=== PATIENT | female | born 1970 | race Caucasian/White ===

== ENCOUNTER 2016-07-08 10:54 | Emergency (ER) | payer OTHER, BC ==
[~2016-07-08 10:54] MED LIST: AUGM500T34 PO
[2016-07-08] MEDS ORDERED: FLUORESCEIN OPHTH 1 MG STRIP As Ordered ONE (13:20)
--- NOTE | 2016-07-08 14:55 | EDDOCDS ---
Physician Documentation [facility] Name: Yanni Beltran Age: 45 yrs Sex: Female : 1970 Arrival Date: 07/08/2016 Time: 10:54 Bed PD Private MD: Everette Disposition: 07/08/16 14:30 Discharged to Home/Self Care. Impression: Unspecified injury of right eye and orbit - LASER POINTED IN RIGHT EYE, BLURRED VISION. - Condition is Stable. - Discharge Instructions: Eye - Blurred Vision. - Medication Reconciliation, Local Pharmacy Hours, Work Release Form - 2 day form. - Follow up: Emergency Department; When: As needed; Reason: Worsening of conditions. Follow up: Your own Physician; When: [facility]; Reason: Wound/Symptom Recheck, Further diagnostic work-up, Recheck today's complaints, Continuance of care, To establish care. - Problem is new. - Symptoms are unchanged. - Notes: PLEASE FOLLOW UP WITH THE [facility] TOMORROW MORNING AT 0915. THIS IS THE [facility] LOCATION. Historical: - Allergies: SULFA (SULFONAMIDES) (Rash); Compazineagitation; - Home Meds: 1. levothyroxine 50 mcg Oral cap 1 cap once daily 2. multivitamin Oral tab 1 tablet daily 3. ibuprofen 600 mg Oral tab 1 tab every 6 hours as needed - PMHx: Hyperthyroidism; - PSHx: Appendectomy; right knee; lasek both eyes; Ablation, Cardiac; ; vein stripping; - Social history: Smoking status: Patient states was never smoker of tobacco. No barriers to communication noted, The patient speaks fluent Andorran. - Family history: Not pertinent. - : The pt / caregiver states he / she is not on anticoagulants. Home medication list is obtained from the patient. - Exposure Risk Screening:: None identified. 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 0 in. (182.88 cm); Pain 2/10; 14:41 BP 138 / 78 RA Sitting (auto/reg); Pulse 83; Resp 16; Temp 97.8(O); Pulse Ox 98% on jrd R/A; Pain 2/10; 10:55 Body Mass Index 23.06 (77.11 kg, 182.88 cm) cmb Visual Acuity: 13:27 Left Eye Visual acuity 20/20, ; Right Eye Visual acuity 20/50, ; Both Eyes Visual rs3 acuity 20/25; Without Lenses; MDM: 13:18 Fluorescein Strip 1 strips Ophthalmic in right eye once ordered. dt4 13:20 Visual Acuity ordered. dt4 13:47 Financial registration complete. lg 14:13 [facility] Payment Agreement was scanned into [employer] and attached to record. lg Administered Medications: 14:20 Drug: Fluorescein 1 strips [fluorescein 1 mg eye strips (1 strips)] {Note: administered rs3 by provider.} Route: Ophthalmic; Site: right eye; Signatures: Suyapa Perry RN RN kcs Marciano Garsia, Reg Reg lg Louisa Corado RN RN rs3 Ondina Arteaga PA-C PA-C dt4 The chart was reviewed and I authenticate all verbal orders and agree with the evaluation and treatment provided.Attachments: 14:13 [facility] Payment Agreement lg MTDD
--- NOTE | 2016-07-08 14:55 | EDDOCDS ---
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 Saw a MANAGER RESEARCH DEVELOPMENT at the clinic there and he sent her here for eval. Adult Sepsis Screening: The patient does not have new or worsening altered mentation. Patient's respiratory rate is less than 22. Systolic blood pressure is greater than 100. Patient has a qSOFA score of 0- Negative Sepsis Screen. Suicide/Homicide risk assessment- the patient denies having any suicidal and/or homicidal ideations and does not present with any other emotional, behavioral or mental health complaints. Status: Patient is not a service center specialist or dependent. Transition of care: patient was not received from another setting of care. 11:09 Acuity: NAHOMI Level 4 kcs 11:09 Method Of Arrival: Walkin/Carried/Asstd kcs Triage Assessment: 11:14 General: Appears comfortable, well developed, well nourished, well groomed, Behavior is kcs cooperative, pleasant. Pain: Location: right eye Pain currently is 2 out of 10 on a pain scale. Pt Declines HIV testing. Neurological: Level of Consciousness is awake, alert. Respiratory: Airway is patent Respiratory effort is even, unlabored, Respiratory pattern is regular, symmetrical. Derm: Skin is intact, is healthy with good turgor, Skin is dry, Skin is normal. 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 levothyroxine 50 mcg Oral cap 1 cap once daily 2. multivitamin Oral tab 1 tablet daily 3. ibuprofen 600 mg Oral tab 1 tab every 6 hours as needed - PMHx: Hyperthyroidism; - PSHx: Appendectomy; right knee; lasek both eyes; Ablation, Cardiac; ; vein stripping; - Social history: Smoking status: Patient states was never smoker of tobacco. No barriers to communication noted, The patient speaks fluent Vietnamese. - Family history: Not pertinent. - : The pt / caregiver states he / she is not on anticoagulants. Home medication list is obtained from the patient. - Exposure Risk Screening:: None identified. Screenin:52 Screening information is obtained from the patient. Fall risk: No risks identified. rs3 Assistance ADL's: requires no assistance with activities of daily living. Abuse/DV Screen: The patient / caregiver reports he/she is: not in a situation that causes fear, pain or injury. Nutritional screening: No deficits noted. Advance Directives: Currently, there is no health care proxy. home support is adequate. Assessment: 14:51 General: Appears in no apparent distress, Behavior is appropriate for age, cooperative. rs3 Pain: Denies pain. EENT: Reports blurred vision in outer aspect of conjuctiva of right eye, iris of right eye and inner aspect of conjuctiva of right eye. Respiratory: Airway is patent Respiratory effort is even, unlabored. Derm: Skin is pink, warm & dry. Vital Signs: 10:55 BP 139 / 91; Pulse 83; Resp 16; Temp 98.2(O); Pulse Ox 98% ; Weight 77.11 kg; Height 6 cmb ft. 0 in. (182.88 cm); Pain 2/10; 14:41 BP 138 / 78 RA Sitting (auto/reg); Pulse 83; Resp 16; Temp 97.8(O); Pulse Ox 98% on jrd R/A; Pain 2/10; 10:55 Body Mass Index 23.06 (77.11 kg, 182.88 cm) cmb Vitals: 10:55 Log In Time: July 08, 2016 at 10:40. cmb Visual Acuity: 13:27 Left Eye Visual acuity 20/20, ; Right Eye Visual acuity 20/50, ; Both Eyes Visual rs3 acuity 20/25; Without Lenses; ED Course: 10:55 Patient visited by Eloisa Obrien. cmb 10:55 Everette is Private Physician. cmb 10:55 Patient moved to Waiting cmb 10:56 Patient moved to Pre RCE cmb 11:12 Triage Initiated kcs 12:19 Patient moved to Triage 1 jrd 12:54 Patient visited by Mabel Menchaca RN. mk4 12:55 Ondina Arteaga PA-C is [facility]. dt4 12:55 Gen Higuera MD is Attending Physician. dt4 12:55 Patient visited by Ondina Arteaga PA-C. dt4 13:19 Patient moved to I10 / 23 rs3 13:20 Patient moved to PD2 / 27 dt4 13:46 Patient visited by Suyapa Perry RN. kcs 14:13 [facility] Payment Agreement was scanned into [employer] and attached to record. lg 14:19 Patient visited by Mabel Menchaca RN. mk4 14:27 Your own Physician is Referral Physician. dt4 14:44 Patient visited by Akin Gaines PCA. jrd 14:53 No IV's were initiated during this patient's visit. No procedures done that require rs3 assistance. 14:54 The patient / caregiver is instructed regarding the plan of care and ED course. rs3 Administered Medications: 14:20 Drug: Fluorescein 1 strips [fluorescein 1 mg eye strips (1 strips)] {Note: administered rs3 by provider.} Route: Ophthalmic; Site: right eye; Order Results: There are currently no results for this order. Outcome: 14:30 Discharge ordered by Provider. dt4 14:53 Discharge Assessment: patient administered narcotics - no. The following High Risk rs3 Discharge criteria are identified: None. Discharged to home with family. Condition: stable. Discharge instructions given to patient, Instructed on discharge instructions, follow up and referral plans. medication usage, Demonstrated understanding of instructions, medications, Pt was receptive of discharge instructions/ teaching. No special radiology studies were completed. Property :Personal belongings accompany Pt. 14:54 Patient left the ED. rs3 Signatures: Suyapa Perry RN RN kcs Ganter, LoriLee, Reg Reg lg Soosairaj, Rosemary, RN RN rs3 Eloisa Obrien cmb Mabel Menchaca RN RN Ondina Roland PA-C PA-C dt4 Akin Gaines PCA PCA jrd MTDD
--- NOTE | 2016-07-10 15:55 | EDDOCDS ---
Physician Documentation [facility] Name: Yanni Beltran Age: 45 yrs Sex: Female : 1970 Arrival Date: 07/08/2016 Time: 10:54 Bed PD Private MD: Everette Disposition: 07/08/16 14:30 Discharged to Home/Self Care. Impression: Unspecified injury of right eye and orbit - LASER POINTED IN RIGHT EYE, BLURRED VISION. - Condition is Stable. - Discharge Instructions: Eye - Blurred Vision. - Medication Reconciliation, Local Pharmacy Hours, Work Release Form - 2 day form. - Follow up: Emergency Department; When: As needed; Reason: Worsening of conditions. Follow up: Your own Physician; When: [facility]; Reason: Wound/Symptom Recheck, Further diagnostic work-up, Recheck today's complaints, Continuance of care, To establish care. - Problem is new. - Symptoms are unchanged. - Notes: PLEASE FOLLOW UP WITH THE [facility] TOMORROW MORNING AT 0915. THIS IS THE [facility] LOCATION. Historical: - Allergies: SULFA (SULFONAMIDES) (Rash); Compazineagitation; - Home Meds: 1. levothyroxine 50 mcg Oral cap 1 cap once daily 2. multivitamin Oral tab 1 tablet daily 3. ibuprofen 600 mg Oral tab 1 tab every 6 hours as needed - PMHx: Hyperthyroidism; - PSHx: Appendectomy; right knee; lasek both eyes; Ablation, Cardiac; ; vein stripping; - Social history: Smoking status: Patient states was never smoker of tobacco. No barriers to communication noted, The patient speaks fluent Lao. - Family history: Not pertinent. - : The pt / caregiver states he / she is not on anticoagulants. Home medication list is obtained from the patient. - Exposure Risk Screening:: None identified. 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 0 in. (182.88 cm); Pain 2/10; 14:41 BP 138 / 78 RA Sitting (auto/reg); Pulse 83; Resp 16; Temp 97.8(O); Pulse Ox 98% on jrd R/A; Pain 2/10; 10:55 Body Mass Index 23.06 (77.11 kg, 182.88 cm) cmb Visual Acuity: 13:27 Left Eye Visual acuity 20/20, ; Right Eye Visual acuity 20/50, ; Both Eyes Visual rs3 acuity 20/25; Without Lenses; MDM: 13:18 Fluorescein Strip 1 strips Ophthalmic in right eye once ordered. dt4 13:20 Visual Acuity ordered. dt4 13:47 Financial registration complete. lg 14: [facility] Payment Agreement was scanned into [employer] and attached to record. lg 07/09 12:21 T-Sheet-- Draft Copy was scanned into [employer] and attached to record. gb Administered Medications: 07/08 14:20 Drug: Fluorescein 1 strips [fluorescein 1 mg eye strips (1 strips)] {Note: administered rs3 by provider.} Route: Ophthalmic; Site: right eye; Signatures: Suyapa Perry RN RN kcs Negin Sales, Reg Reg gb Marciano Garsia, Reg Reg lg Louisa Corado RN RN rs3 Ondina Arteaga PA-C PA-C dt4 The chart was reviewed and I authenticate all verbal orders and agree with the evaluation and treatment provided.Attachments: 14: [facility] Payment Agreement 07/09 12:21 T-Sheet-- Draft Copy gb Chart Complete MTDD
--- NOTE | 2016-07-10 15:55 | EDDOCDS ---
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 Saw a SOFT SUGAR SUPERVISOR at the clinic there and he sent her here for eval. Adult Sepsis Screening: The patient does not have new or worsening altered mentation. Patient's respiratory rate is less than 22. Systolic blood pressure is greater than 100. Patient has a qSOFA score of 0- Negative Sepsis Screen. Suicide/Homicide risk assessment- the patient denies having any suicidal and/or homicidal ideations and does not present with any other emotional, behavioral or mental health complaints. 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 Transition of care: patient was not received from another setting of care. 11:09 Acuity: NAHOMI Level 4 kcs 11:09 Method Of Arrival: Walkin/Carried/Asstd kcs Triage Assessment: 11:14 General: Appears comfortable, well developed, well nourished, well groomed, Behavior is kcs cooperative, pleasant. Pain: Location: right eye Pain currently is 2 out of 10 on a pain scale. Pt Declines HIV testing. Neurological: Level of Consciousness is awake, alert. Respiratory: Airway is patent Respiratory effort is even, unlabored, Respiratory pattern is regular, symmetrical. Derm: Skin is intact, is healthy with good turgor, Skin is dry, Skin is normal. 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 levothyroxine 50 mcg Oral cap 1 cap once daily 2. multivitamin Oral tab 1 tablet daily 3. ibuprofen 600 mg Oral tab 1 tab every 6 hours as needed - PMHx: Hyperthyroidism; - PSHx: Appendectomy; right knee; lasek both eyes; Ablation, Cardiac; ; vein stripping; - Social history: Smoking status: Patient states was never smoker of tobacco. No barriers to communication noted, The patient speaks fluent Swedish. - Family history: Not pertinent. - : The pt / caregiver states he / she is not on anticoagulants. Home medication list is obtained from the patient. - Exposure Risk Screening:: None identified. Screenin:52 Screening information is obtained from the patient. Fall risk: No risks identified. rs3 Assistance ADL's: requires no assistance with activities of daily living. Abuse/DV Screen: The patient / caregiver reports he/she is: not in a situation that causes fear, pain or injury. Nutritional screening: No deficits noted. Advance Directives: Currently, there is no health care proxy. home support is adequate. Assessment: 14:51 General: Appears in no apparent distress, Behavior is appropriate for age, cooperative. rs3 Pain: Denies pain. EENT: Reports blurred vision in outer aspect of conjuctiva of right eye, iris of right eye and inner aspect of conjuctiva of right eye. Respiratory: Airway is patent Respiratory effort is even, unlabored. Derm: Skin is pink, warm & dry. Vital Signs: 10:55 BP 139 / 91; Pulse 83; Resp 16; Temp 98.2(O); Pulse Ox 98% ; Weight 77.11 kg; Height 6 cmb ft. 0 in. (182.88 cm); Pain 2/10; 14:41 BP 138 / 78 RA Sitting (auto/reg); Pulse 83; Resp 16; Temp 97.8(O); Pulse Ox 98% on jrd R/A; Pain 2/10; 10:55 Body Mass Index 23.06 (77.11 kg, 182.88 cm) cmb Vitals: 10:55 Log In Time: July 08, 2016 at 10:40. cmb Visual Acuity: 13:27 Left Eye Visual acuity 20/20, ; Right Eye Visual acuity 20/50, ; Both Eyes Visual rs3 acuity 20/25; Without Lenses; ED Course: 10:55 Patient visited by Eloisa Obrien. cmb 10:55 Everette is Private Physician. cmb 10:55 Patient moved to Waiting cmb 10:56 Patient moved to Pre RCE cmb 11:12 Triage Initiated kcs 12:19 Patient moved to Triage 1 jrd 12:54 Patient visited by Mabel Menchaca RN. mk4 12:55 Ondina Arteaga PA-C is PHCP. dt4 12:55 Gen Higuera MD is Attending Physician. dt4 12:55 Patient visited by Ondina Arteaga PA-C. dt4 13:19 Patient moved to I10 / 23 rs3 13:20 Patient moved to PD2 / 27 dt4 13:46 Patient visited by Suyapa Perry RN. kcs 14:13 [facility] Payment Agreement was scanned into [employer] and attached to record. lg 14:19 Patient visited by Mabel Menchaca RN. mk4 14:27 Your own Physician is Referral Physician. dt4 14:44 Patient visited by Akin Gaines PCA. jrd 14:53 No IV's were initiated during this patient's visit. No procedures done that require rs3 assistance. 14:54 The patient / caregiver is instructed regarding the plan of care and ED course. rs3 07/09 12:21 T-Sheet-- Draft Copy was scanned into [employer] and attached to record. gb Administered Medications: 07/08 14:20 Drug: Fluorescein 1 strips [fluorescein 1 mg eye strips (1 strips)] {Note: administered rs3 by provider.} Route: Ophthalmic; Site: right eye; Order Results: There are currently no results for this order. Outcome: 14:30 Discharge ordered by Provider. dt4 14:53 Discharge Assessment: patient administered narcotics - no. The following High Risk rs3 Discharge criteria are identified: None. Discharged to home with family. Condition: stable. Discharge instructions given to patient, Instructed on discharge instructions, follow up and referral plans. medication usage, Demonstrated understanding of instructions, medications, Pt was receptive of discharge instructions/ teaching. No special radiology studies were completed. Property :Personal belongings accompany Pt. 14:54 Patient left the ED. rs3 Signatures: Suyapa Perry RN RN kcs Barnhardt, Gloria, Reg Reg gb Marciano Garsia, Reg Reg lg Louisa Corado RN RN rs3 Eloisa Obrien cmb Mabel Menchaca RN RN mk4 Tschudi, Diane, PA-C PA-C dt4 Akin Gaines, CLOTH PICKER CLOTH PICKER jrd Chart Complete MTDD
--- NOTE | 2016-07-10 15:55 | EDDOCDS ---
Physician Documentation [facility] Name: Yanni Beltran Age: 45 yrs Sex: Female : 1970 Arrival Date: 07/08/2016 Time: 10:54 Bed PD Private MD: Everette Disposition: 07/08/16 14:30 Discharged to Home/Self Care. Impression: Unspecified injury of right eye and orbit - LASER POINTED IN RIGHT EYE, BLURRED VISION. - Condition is Stable. - Discharge Instructions: Eye - Blurred Vision. - Medication Reconciliation, Local Pharmacy Hours, Work Release Form - 2 day form. - Follow up: Emergency Department; When: As needed; Reason: Worsening of conditions. Follow up: Your own Physician; When: [facility]; Reason: Wound/Symptom Recheck, Further diagnostic work-up, Recheck today's complaints, Continuance of care, To establish care. - Problem is new. - Symptoms are unchanged. - Notes: PLEASE FOLLOW UP WITH THE [facility] TOMORROW MORNING AT 0915. THIS IS THE [facility] LOCATION. Historical: - Allergies: SULFA (SULFONAMIDES) (Rash); Compazineagitation; - Home Meds: 1. levothyroxine 50 mcg Oral cap 1 cap once daily 2. multivitamin Oral tab 1 tablet daily 3. ibuprofen 600 mg Oral tab 1 tab every 6 hours as needed - PMHx: Hyperthyroidism; - PSHx: Appendectomy; right knee; lasek both eyes; Ablation, Cardiac; ; vein stripping; - Social history: Smoking status: Patient states was never smoker of tobacco. No barriers to communication noted, The patient speaks fluent Ethiopian. - Family history: Not pertinent. - : The pt / caregiver states he / she is not on anticoagulants. Home medication list is obtained from the patient. - Exposure Risk Screening:: None identified. 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 0 in. (182.88 cm); Pain 2/10; 14:41 BP 138 / 78 RA Sitting (auto/reg); Pulse 83; Resp 16; Temp 97.8(O); Pulse Ox 98% on jrd R/A; Pain 2/10; 10:55 Body Mass Index 23.06 (77.11 kg, 182.88 cm) cmb Visual Acuity: 13:27 Left Eye Visual acuity 20/20, ; Right Eye Visual acuity 20/50, ; Both Eyes Visual rs3 acuity 20/25; Without Lenses; MDM: 13:18 Fluorescein Strip 1 strips Ophthalmic in right eye once ordered. dt4 13:20 Visual Acuity ordered. dt4 13:47 Financial registration complete. lg 14: [facility] Payment Agreement was scanned into [employer] and attached to record. lg 07/09 12:21 T-Sheet-- Draft Copy was scanned into [employer] and attached to record. gb Administered Medications: 07/08 14:20 Drug: Fluorescein 1 strips [fluorescein 1 mg eye strips (1 strips)] {Note: administered rs3 by provider.} Route: Ophthalmic; Site: right eye; Signatures: Suyapa Perry RN RN kcs Negin Sales, Reg Reg gb Marciano Garsia, Reg Reg lg Louisa Corado RN RN rs3 Ondina Arteaga PA-C PA-C dt4 The chart was reviewed and I authenticate all verbal orders and agree with the evaluation and treatment provided.Attachments: 14: [facility] Payment Agreement 07/09 12:21 T-Sheet-- Draft Copy gb Chart Complete MTDD
== END 2016-07-08 14:54 | disposition home or self-care (01) ==
LOC: M ED 10:54
DX: H53.8 Other visual disturbances (principal); E05.90 Thyrotoxicosis, unspecified without thyrotoxic crisis or storm; Z79.899 Other long term (current) drug therapy; Z88.2 Allergy status to sulfonamides; Z88.8 Allergy status to other drugs, medicaments and biological substances

== ENCOUNTER → 2016-08-04 | Outpatient (CLI) | payer OTHER, BC ==
[2016-08-04 17:54] LABS: THYROID PEROXIDASE ANTIBODY < 28.0 U/ML (<60.0)
== END ==
LOC: M LRY 11:53
PROVIDERS: ATTEND Family Medicine
DX: E03.8 Other specified hypothyroidism (principal); N64.52 Nipple discharge

== ENCOUNTER → 2016-08-20 | Outpatient (CLI) | payer BC, OTHER | LOC: M SLEEP HO 12:46 | PROVIDERS: ATTEND Physician Assistant | DX: R53.83 Other fatigue (principal) ==

== ENCOUNTER → 2016-10-13 | Outpatient (REF) | payer BC | LOC: M LAB REF 13:20 | PROVIDERS: ATTEND Specialist | DX: Z12.4 Encounter for screening for malignant neoplasm of cervix (principal) ==

== ENCOUNTER → 2016-11-03 | Outpatient (CLI) | payer BC ==
[2016-11-03 14:08] LABS: FREE T4 1.13 NG/DL (0.76-1.46)
== END ==
LOC: M SMT 08:22
PROVIDERS: ATTEND Physician Assistant
DX: E03.8 Other specified hypothyroidism (principal)

== ENCOUNTER → 2017-03-03 | Outpatient (CLI) | payer BC ==
--- NOTE | 2017-03-03 15:31 | REP ---
Clinical: Trauma. Technique: AP, lateral, bilateral oblique views left wrist . Findings: The carpal bones, surrounding osseous structures, soft tissues, and joint spaces are normal. There is no evidence for acute fracture or dislocation. No subcutaneous emphysema or radiodense foreign body. Impression: Normal left wrist series. No acute fracture or dislocation Signed by Kaleb Graham MD 03/03/2017 03:23 P
== END ==
LOC: M LRY 14:22
PROVIDERS: ATTEND Nurse Practitioner Family
DX: S69.92XA Unspecified injury of left wrist, hand and finger(s), initial encounter (principal); W18.30XA Fall on same level, unspecified, initial encounter; Y92.009 Unspecified place in unspecified non-institutional (private) residence as the place of occurrence of the external cause

== ENCOUNTER → 2017-03-10 | Outpatient (CLI) | payer BC ==
[2017-03-10 13:57] LABS: BASO % 0.8 % (0.0-1.0); EOS # 0.2 K/mm3 (0.0-0.50); EOS % 3.9 % (0.0-3.0); LARGE UNSTAINED CELL # 0.1 K/mm3 (0.0-0.4); LARGE UNSTAINED CELL % 1.9 % (0.0-4.0); LYMPH # 1.6 K/mm3 (1.5-4.5); LYMPH % 29.3 % (24.0-44.0); MEAN CORPUSCULAR HGB CONC 34.2 g/dl (32.0-36.5); MEAN CORPUSCULAR VOLUME 90.6 fl (80.0-96.0); MONO # 0.3 K/mm3 (0.0-0.8); MONO % 4.7 % (0.0-5.0); NEUTROPHILS # 3.3 K/mm3 (1.8-7.7); NEUTROPHILS % 59.3 % (36.0-66.0); PLATELET COUNT, AUTOMATED 189 k/mm3 (150-450); RED CELL DISTRIBUTION WIDTH 12.1 % (11.5-14.5); WHITE BLOOD COUNT 5.5 K/mm3 (4.0-10.0)
[2017-03-10 14:05] LABS: ALBUMIN/GLOBULIN RATIO 1.43 (1.00-1.93); ALKALINE PHOSPHATASE 38 U/L (45-117); ALT/SGPT 24 U/L (12-78); ANION GAP 8 MEQ/L (8-16); AST/SGOT 14 U/L (15-37); BILIRUBIN,TOTAL 1.1 MG/DL (0.2-1.0); BLOOD UREA NITROGEN 15 MG/DL (7-18); CALCIUM LEVEL 8.4 MG/DL (8.5-10.1); CARBON DIOXIDE LEVEL 27 MEQ/L (21-32); CHLORIDE LEVEL 107 MEQ/L (98-107); CHOLESTEROL LEVEL 176 MG/DL (<200); CREATININE FOR GFR 0.76 MG/DL (0.55-1.02); FREE T4 1.11 NG/DL (0.76-1.46); GLOMERULAR FILTRATION RATE > 60.0 (>58); GLUCOSE, FASTING 80 MG/DL (70-105); POTASSIUM SERUM 4.6 MEQ/L (3.5-5.1); SODIUM LEVEL 142 MEQ/L (136-145); TOTAL PROTEIN 6.8 GM/DL (6.4-8.2); TRIGLYCERIDES LEVEL 58 MG/DL (<150)
== END ==
LOC: M SMT 08:56
PROVIDERS: ATTEND Family Medicine
DX: E03.8 Other specified hypothyroidism (principal); Z13.29 Encounter for screening for other suspected endocrine disorder; Z13.0 Encounter for screening for diseases of the blood and blood-forming organs and certain disorders involving the immune mechanism

== ENCOUNTER → 2017-09-01 | Outpatient (CLI) | payer BC ==
[2017-09-01 14:38] LABS: TOTAL 25(OH) VITAMIN D 23.5 NG/ML (30.0-100.0)
[2017-09-01 14:55] LABS: FREE T4 1.04 NG/DL (0.76-1.46)
== END ==
LOC: M SMT 11:15
DX: E03.8 Other specified hypothyroidism (principal)
CPT/HCPCS: 84443

== ENCOUNTER → 2018-03-17 | Outpatient (CLI) | payer BC ==
[2018-03-17 11:32] LABS: BASO # 0.1 10^3/uL (0.0-0.2); BASO % 0.9 % (0.0-1.0); EOS # 0.2 10^3/uL (0.0-0.50); EOS % 4.1 % (0.0-3.0); HEMATOCRIT 36.3 % (36.0-47.0); HEMOGLOBIN 12.2 g/dl (12.0-15.5); IMMATURE GRANULOCYTE % 0.2 % (0-3.0); LYMPH # 1.7 10^3/uL (1.5-4.5); LYMPH % 32.3 % (24.0-44.0); MEAN CORPUSCULAR HGB CONC 33.6 g/dl (32.0-36.5); MEAN CORPUSCULAR VOLUME 92.1 fl (80.0-96.0); MONO # 0.3 10^3/uL (0.0-0.8); MONO % 5.6 % (0.0-5.0); NEUTROPHILS # 3.1 10^3/uL (1.8-7.7); NEUTROPHILS % 56.9 % (36.0-66.0); PLATELET COUNT, AUTOMATED 185 10^3/uL (150-450); RED BLOOD COUNT 3.94 10^6/uL (4.00-5.40); RED CELL DISTRIBUTION WIDTH 12.7 % (11.5-14.5); WHITE BLOOD COUNT 5.4 10^3/uL (4.0-10.0)
[2018-03-17 12:02] LABS: ALBUMIN 3.8 GM/DL (3.2-5.2); ALBUMIN/GLOBULIN RATIO 1.23 (1.00-1.93); ALKALINE PHOSPHATASE 43 U/L (45-117); ALT/SGPT 19 U/L (12-78); ANION GAP 8 MEQ/L (8-16); AST/SGOT 18 U/L (7-37); BILIRUBIN,TOTAL 0.9 MG/DL (0.2-1.0); BLOOD UREA NITROGEN 14 MG/DL (7-18); CALCIUM LEVEL 8.4 MG/DL (8.5-10.1); CARBON DIOXIDE LEVEL 28 MEQ/L (21-32); CHLORIDE LEVEL 104 MEQ/L (98-107); CHOLESTEROL LEVEL 180 MG/DL (<200); CREATININE FOR GFR 0.84 MG/DL (0.55-1.30); FREE T4 0.91 NG/DL (0.76-1.46); GLOMERULAR FILTRATION RATE > 60.0 (>58); GLUCOSE, FASTING 82 MG/DL (70-100); HDL CHOLESTEROL 72 MG/DL (>40); LDL CHOLESTEROL 95 MG/DL (<100); NON-HDL-C 108 MG/DL; POTASSIUM SERUM 4.2 MEQ/L (3.5-5.1); SODIUM LEVEL 140 MEQ/L (136-145); TOTAL PROTEIN 6.9 GM/DL (6.4-8.2); TRIGLYCERIDES LEVEL 67 MG/DL (<150)
[2018-03-19 00:20] LABS: Lyme Disease IgG/IgM Antibodie <0.91 ISR (0.00-0.90); Lyme Disease IgM Ab Quantitati <0.80 index (0.00-0.79)
== END ==
LOC: M LRY 08:45
DX: E03.8 Other specified hypothyroidism (principal); Z13.29 Encounter for screening for other suspected endocrine disorder; G31.84 Mild cognitive impairment of uncertain or unknown etiology; M25.50 Pain in unspecified joint
CPT/HCPCS: 84443

== ENCOUNTER → 2018-09-06 | Outpatient (REF) | payer BC ==
[~2018-09-06] MED LIST changes: +IBUP-1022 PO; +LEXA1TAB PO; +MULT1TAB10 PO; +OXYC1TAB23 PO; +SYNT50TA PO; +VITA100067 PO
[2018-09-06 20:24] LABS: FREE T4 0.99 NG/DL (0.76-1.46); THYROID STIMULATING HORMONE 2.07 uIU/ML (0.358-3.740)
== END ==
LOC: M LABDRWAD 19:25
PROVIDERS: ATTEND Family Medicine
DX: E55.9 Vitamin D deficiency, unspecified (principal); E03.9 Hypothyroidism, unspecified

== ENCOUNTER → 2019-01-05 | Outpatient (CLI) | payer BC ==
[2019-01-05 17:21] LABS: BASO # 0.1 10^3/uL (0.0-0.2); BASO % 1.3 % (0.0-1.0); EOS # 0.3 10^3/uL (0.0-0.50); EOS % 4.5 % (0.0-3.0); HEMATOCRIT 37.6 % (36.0-47.0); HEMOGLOBIN 12.7 g/dl (12.0-15.5); LYMPH # 1.9 10^3/uL (1.5-4.5); LYMPH % 33.8 % (24.0-44.0); MEAN CORPUSCULAR HEMOGLOBIN 31.6 pg (27.0-33.0); MEAN CORPUSCULAR HGB CONC 33.8 g/dl (32.0-36.5); MEAN CORPUSCULAR VOLUME 93.5 fl (80.0-96.0); MONO # 0.3 10^3/uL (0.0-0.8); MONO % 6.1 % (0.0-5.0); NEUTROPHILS % 54.1 % (36.0-66.0); PLATELET COUNT, AUTOMATED 206 10^3/uL (150-450); RED BLOOD COUNT 4.02 10^6/uL (4.00-5.40); WHITE BLOOD COUNT 5.5 10^3/uL (4.0-10.0)
[2019-01-05 17:26] LABS: ALBUMIN 4.1 GM/DL (3.2-5.2); ALT/SGPT 20 U/L (12-78); AMYLASE 46 U/L (25-115); BILIRUBIN,TOTAL 0.8 MG/DL (0.2-1.0); BLOOD UREA NITROGEN 14 MG/DL (7-18); CALCIUM LEVEL 8.6 MG/DL (8.5-10.1); CARBON DIOXIDE LEVEL 30 MEQ/L (21-32); CHLORIDE LEVEL 106 MEQ/L (98-107); CREATININE FOR GFR 0.86 MG/DL (0.55-1.30); GLOMERULAR FILTRATION RATE > 60.0 (>58); GLUCOSE, FASTING 78 MG/DL (70-100); LIPASE 94 U/L (73-393); POTASSIUM SERUM 4.5 MEQ/L (3.5-5.1); SODIUM LEVEL 139 MEQ/L (136-145); TOTAL PROTEIN 6.8 GM/DL (6.4-8.2)
== END ==
LOC: M SMT 13:45
PROVIDERS: ATTEND Family Medicine
DX: R10.32 Left lower quadrant pain (principal)

== ENCOUNTER → 2019-02-14 | Outpatient (CLI) | payer BC ==
--- NOTE | 2019-02-14 17:12 | REP ---
CT of the pelvis with transabdominal and endovaginal ultrasound assessment of the the: [address] dated 01/11/2019. The the patient had an 2.5 cm nodule in the left rut pelvis and a superior anterior location, abutting the the psoas muscle with peripheral enhancement and central low density. The finding is nonspecific and some diagnostic considerations are high anterior ovary, mesenteric abscess or necrotic lymph node. The the patient has a hysterectomy. The bladder is adequately distended. There is no identifiable ureter. Neither the right or left ovaries could be identified. No mass or cyst is identified, particularly on the left. Impression: The patient has a hysterectomy. Neither the uterus or right or left ovaries could be visualized. There are no masses or cysts identified otherwise. The bladder is adequately distended and otherwise unremarkable. Electronically Signed by Clovis Marques MD 02/14/2019 05:03 P
== END ==
LOC: M LRY 14:01
PROVIDERS: ATTEND Obstetrics & Gynecology
DX: R10.32 Left lower quadrant pain (principal); Z90.79 Acquired absence of other genital organ(s)

== ENCOUNTER 2019-03-13 12:55 | Outpatient (RCR) | payer BC | END 2019-03-26 | LOC: M PT 12:55 | PROVIDERS: ATTEND Obstetrics & Gynecology | DX: N32.81 Overactive bladder (principal); N39.41 Urge incontinence ==

== ENCOUNTER → 2019-04-02 | Outpatient (CLI) | payer BC ==
[2019-04-02 13:12] LABS: BASO # 0.1 10^3/uL (0.0-0.2); BASO % 0.7 % (0.0-1.0); EOS # 0.2 10^3/uL (0.0-0.5); EOS % 2.8 % (0.0-3.0); HEMATOCRIT 37.4 % (36.0-47.0); HEMOGLOBIN 12.3 g/dl (12.0-15.5); LYMPH # 1.9 10^3/uL (1.5-5.0); LYMPH % 27.2 % (24.0-44.0); MEAN CORPUSCULAR HEMOGLOBIN 30.5 pg (27.0-33.0); MEAN CORPUSCULAR HGB CONC 32.9 g/dl (32.0-36.5); MEAN CORPUSCULAR VOLUME 92.8 fl (80.0-96.0); MONO # 0.4 10^3/uL (0.0-0.8); MONO % 6.1 % (0.0-5.0); NEUTROPHILS # 4.3 10^3/uL (1.5-8.5); NEUTROPHILS % 63.1 % (36.0-66.0); PLATELET COUNT, AUTOMATED 209 10^3/uL (150-450); RED BLOOD COUNT 4.03 10^6/uL (4.00-5.40); WHITE BLOOD COUNT 6.8 10^3/uL (4.0-10.0)
[2019-04-02 13:52] LABS: ALBUMIN 3.9 GM/DL (3.2-5.2); ALT/SGPT 18 U/L (12-78); BILIRUBIN,TOTAL 0.7 MG/DL (0.2-1.0); BLOOD UREA NITROGEN 15 MG/DL (7-18); CALCIUM LEVEL 8.7 MG/DL (8.5-10.1); CARBON DIOXIDE LEVEL 29 MEQ/L (21-32); CHLORIDE LEVEL 106 MEQ/L (98-107); CREATININE FOR GFR 0.82 MG/DL (0.55-1.30); FERRITIN 59 NG/ML (8-252); FREE T4 0.95 NG/DL (0.76-1.46); GLOMERULAR FILTRATION RATE > 60.0 (>58); GLUCOSE, FASTING 78 MG/DL (70-100); IRON (FE) 122 UG/DL (50-170); PERCENT SATURATION 35.8 % (13.2-45.0); POTASSIUM SERUM 4.5 MEQ/L (3.5-5.1); SODIUM LEVEL 139 MEQ/L (136-145); TOTAL 25(OH) VITAMIN D 30.6 NG/ML (30.0-100.0); TOTAL IRON BINDING CAPACITY 341 UG/DL (250-450); TOTAL PROTEIN 6.8 GM/DL (6.4-8.2)
[2019-04-04 08:19] LABS: Lyme Disease IgG/IgM Antibodie <0.91 ISR (0.00-0.90); Lyme Disease IgM Ab Quantitati <0.80 index (0.00-0.79); TISSUE TRANSGLUTAMINASE IgA <2 U/mL (0-3); TISSUE TRANSGLUTAMINASE IgG <2 U/mL (0-5); UNITSIGA FOR GLIADIN IGA 3 units (0-19); UNITSIGG FOR GLIADIN IGG 1 units (0-19)
== END ==
LOC: M SMT 11:13
PROVIDERS: ATTEND Family Medicine
DX: R53.83 Other fatigue (principal); K62.5 Hemorrhage of anus and rectum

== ENCOUNTER 2019-04-19 13:07 | Outpatient (RCR) | payer BC | END 2019-04-26 | LOC: M PT 13:07 | PROVIDERS: ATTEND Obstetrics & Gynecology | DX: N32.81 Overactive bladder (principal); N39.41 Urge incontinence ==

== ENCOUNTER 2019-05-08 11:26 | Outpatient (RCR) | payer BC ==
[2019-05-09] MEDS ORDERED: TROS60CA2 PO (14:14)
[2019-05-09] MEDS ORDERED: NAPR-885 PO (14:27)
[2019-05-09] MEDS ORDERED: VITA200028 PO (14:27)
[2019-05-09] MEDS ORDERED: MULTCAP PO (14:27)
[2019-05-10] MEDS ORDERED: CIPR500T3 PO (09:48)
[2019-05-10] MEDS ORDERED: ESTA0.25 PO (09:48)
[2019-05-10] MEDS ORDERED: KETO10TAB PO (12:37)
== END 2019-05-26 ==
LOC: M PT 11:26
PROVIDERS: ATTEND Obstetrics & Gynecology
DX: Z51.89 Encounter for other specified aftercare (principal)

== ENCOUNTER 2019-05-10 09:29 | Emergency (ER) | payer BC ==
[~2019-05-10] VITALS: Ht 182.9 cm; Wt 93.4 kg
[~2019-05-10 09:29] MED LIST changes: +MULTCAP PO; +NAPR-885 PO; +TROS60CA2 PO; +VITA200028 PO
[2019-05-10] MEDS ORDERED: CIPR500T3 PO (09:48)
[2019-05-10] MEDS ORDERED: ESTA0.25 PO (09:48)
[2019-05-10] MEDS ORDERED: NS 1,000 ML IV ONE (10:15)
[2019-05-10] MEDS ORDERED: KETOROLAC 30 MG/ML VIAL (J1885) IV ONE (10:15)
[2019-05-10 10:47] LABS: BASO # 0.1 10^3/uL (0.0-0.2); BASO % 0.9 % (0.0-1.0); EOS # 0.2 10^3/uL (0.0-0.5); EOS % 3.2 % (0.0-3.0); HEMATOCRIT 36.3 % (36.0-47.0); LYMPH # 1.7 10^3/uL (1.5-5.0); LYMPH % 25.7 % (24.0-44.0); MEAN CORPUSCULAR HEMOGLOBIN 30.5 pg (27.0-33.0); MEAN CORPUSCULAR HGB CONC 33.1 g/dl (32.0-36.5); MEAN CORPUSCULAR VOLUME 92.4 fl (80.0-96.0); MONO # 0.3 10^3/uL (0.0-0.8); MONO % 5.1 % (0.0-5.0); NEUTROPHILS # 4.2 10^3/uL (1.5-8.5); NEUTROPHILS % 64.8 % (36.0-66.0); PLATELET COUNT, AUTOMATED 208 10^3/uL (150-450); RED BLOOD COUNT 3.93 10^6/uL (4.00-5.40); WHITE BLOOD COUNT 6.5 10^3/uL (4.0-10.0)
[2019-05-10 11:14] LABS: ALBUMIN 3.7 GM/DL (3.2-5.2); ALT/SGPT 19 U/L (12-78); BILIRUBIN,DIRECT 0.2 MG/DL (0.0-0.2); BILIRUBIN,TOTAL 0.8 MG/DL (0.2-1.0); BLOOD UREA NITROGEN 14 MG/DL (7-18); CALCIUM LEVEL 8.6 MG/DL (8.5-10.1); CARBON DIOXIDE LEVEL 26 MEQ/L (21-32); CHLORIDE LEVEL 107 MEQ/L (98-107); CREATININE FOR GFR 0.87 MG/DL (0.55-1.30); GLOMERULAR FILTRATION RATE > 60.0 (>58); GLUCOSE, FASTING 85 MG/DL (70-100); LIPASE 93 U/L (73-393); POTASSIUM SERUM 4.2 MEQ/L (3.5-5.1); SODIUM LEVEL 140 MEQ/L (136-145); TOTAL PROTEIN 6.9 GM/DL (6.4-8.2)
[2019-05-10] MEDS ORDERED: ISOVUE-370 76% 100ML VIAL (Q9967) As Ordered ONE (11:22)
--- NOTE | 2019-05-10 12:13 | REP ---
CT abdomen and pelvis with IV but without oral contrast: History: Left lower quadrant pain. CT contrast dose: 100 mL of intravenous Isovue 370. Comparison CT study December 01, 2012. CT findings: Digital preliminary professional sports scout radiograph demonstrates moderate stool in the colon. Bowel gas pattern is otherwise unremarkable. The lung bases are clear on axial CT images. There is no evidence of pleural effusion or upper abdominal ascites. There is a small cyst in the left lobe of the liver, 1.5 cm in greatest diameter, unchanged from the [address] study. No other focal liver lesion is appreciated. The spleen is unremarkable. No adrenal lesion is observed. The kidneys enhance symmetrically and are morphologically intact. No pancreatic abnormality is observed. No abnormalities seen in the gallbladder. Small and large intestinal bowel loops are normal in the upper abdomen. There is no evidence of diverticulosis. There is moderate formed stool throughout the colon. The rectum and distal colon are not dilated however. The appendix is surgically absent. No free fluid or free intraperitoneal air is seen. No abdominal wall defect is observed. Impression: Small cyst in the left lobe of the liver unchanged. Status post prior appendectomy. No acute abdominal or pelvic abnormality. Electronically Signed by Osei Hart MD 05/10/2019 12:30 P
[2019-05-10] MEDS ORDERED: KETO10TAB PO (12:37)
[2019-05-10 12:41] VITALS: BP 125/76
== END 2019-05-10 12:53 | disposition home or self-care (01) ==
LOC: M ED 09:29
DX: R10.2 Pelvic and perineal pain (principal); K76.89 Other specified diseases of liver; E03.9 Hypothyroidism, unspecified; G44.209 Tension-type headache, unspecified, not intractable; K57.32 Diverticulitis of large intestine without perforation or abscess without bleeding; F41.9 Anxiety disorder, unspecified; Z78.0 Asymptomatic menopausal state; Z96.0 Presence of urogenital implants; Z90.710 Acquired absence of both cervix and uterus; Z88.2 Allergy status to sulfonamides; Z91.040 Latex allergy status; Z79.1 Long term (current) use of non-steroidal anti-inflammatories (NSAID); Z79.899 Other long term (current) drug therapy
CPT/HCPCS: 74177; 80048; 80076; 81001; 83690; 85025; 96361; 96374; 99284; J1885; Q9967

== ENCOUNTER 2019-05-17 10:08 | Day surgery (SDC) | payer BC ==
[~2019-05-17] VITALS: Ht 182.9 cm; Wt 89.4 kg
[~2019-05-17 10:08] MED LIST changes: +CIPR500T3 PO; +ESTA0.25 PO; +KETO10TAB PO; +NS 1,000 ML IV ONE
[2019-05-17] MEDS ORDERED: LIDOCAINE 2% INJ 100 MG/5 ML SDV (FOR ANES.) As Ordered ONE (10:17)
[2019-05-17] MEDS ORDERED: PROPOFOL 200 MG/20 ML VIAL As Ordered ONE (10:17)
[2019-05-17 12:05] VITALS: BP 105/70
--- NOTE | 2019-05-17 15:50 | ROOR ---
Patient Name: Yanni Mane Procedure Date: 05/17/2019 11:05 AM Date of : 1970 Age: 48 Room: [facility] Gender: Female Note Status: Finalized Procedure: Colonoscopy Indications: Rectal bleeding Providers: Bay Marroquin Jr, MD Referring MD: Sonia MELENDZE DO Requesting Provider: Medicines: Propofol per Anesthesia Complications: No immediate complications. Procedure: Pre-Anesthesia Assessment: - Prior to the procedure, a History and Physical was performed, and patient medications and allergies were reviewed. The patient is competent. The risks and benefits of the procedure and the sedation options and risks were discussed with the patient. All questions were answered and informed consent was obtained. Patient identification and proposed procedure were verified by the physician and the nurse in the pre-procedure area and in the procedure room. Mental Status Examination: alert and oriented. Airway Examination: normal oropharyngeal airway and neck mobility. Respiratory Examination: clear to auscultation. CV Examination: normal. ASA Grade Assessment: II - A patient with mild systemic disease. After reviewing the risks and benefits, the patient was deemed in satisfactory condition to undergo the procedure. The anesthesia plan was to use moderate sedation / analgesia (conscious sedation). Immediately prior to administration of medications, the patient was re-assessed for adequacy to receive sedatives. The heart rate, respiratory rate, oxygen saturations, blood pressure, adequacy of pulmonary ventilation, and response to care were monitored throughout the procedure. The physical status of the patient was re-assessed after the procedure. The Colonoscope was introduced through the anus and advanced to the cecum, identified by appendiceal orifice and ileocecal valve. The colonoscopy was performed without difficulty. The patient tolerated the procedure well. The quality of the bowel preparation was adequate. Findings: The rectum, recto-sigmoid colon, sigmoid colon, descending colon, transverse colon, ascending colon, cecum, appendiceal orifice and ileocecal valve appeared normal. Impression: - The rectum, recto-sigmoid colon, sigmoid colon, descending colon, transverse colon, ascending colon, cecum, appendiceal orifice and ileocecal valve are normal. - No specimens collected. Recommendation: - Discharge patient to home (ambulatory). - Repeat colonoscopy in 10 years for screening purposes. Bay Marroquin MD Bay Marroquin Jr, MD 05/17/2019 11:33:14 AM Electronically signed by Bay Marroquin Jr, MD Number of Addenda: 0 Note Initiated On: 05/17/2019 11:05 AM Estimated Blood Loss: Estimated blood loss: none.
== END 2019-05-17 12:10 | disposition home or self-care (01) ==
LOC: M OPP 10:08
PROVIDERS: ATTEND Surgery
DX: K62.5 Hemorrhage of anus and rectum (principal); E03.9 Hypothyroidism, unspecified; Z79.899 Other long term (current) drug therapy; Z91.040 Latex allergy status; Z88.2 Allergy status to sulfonamides; Z88.8 Allergy status to other drugs, medicaments and biological substances

== ENCOUNTER → 2019-06-15 | Outpatient (REF) | payer BC ==
[~2019-06-15] MED LIST changes: -NS 1,000 ML IV ONE
== END ==
LOC: M LAB REF 15:14
PROVIDERS: ATTEND Physician Assistant
DX: N30.00 Acute cystitis without hematuria (principal)

== ENCOUNTER → 2019-07-24 | Outpatient (CLI) | payer BC ==
[2019-07-24 17:33] LABS: BASO % 0.7 % (0.0-1.0); EOS # 0.2 10^3/uL (0.0-0.5); EOS % 3.9 % (0.0-3.0); HEMATOCRIT 37.6 % (36.0-47.0); HEMOGLOBIN 12.6 g/dl (12.0-15.5); LYMPH % 33.8 % (24.0-44.0); MEAN CORPUSCULAR HEMOGLOBIN 30.6 pg (27.0-33.0); MEAN CORPUSCULAR HGB CONC 33.5 g/dl (32.0-36.5); MEAN CORPUSCULAR VOLUME 91.3 fl (80.0-96.0); MONO # 0.3 10^3/uL (0.0-0.8); MONO % 4.9 % (0.0-5.0); NEUTROPHILS # 3.3 10^3/uL (1.5-8.5); NEUTROPHILS % 56.5 % (36.0-66.0); PLATELET COUNT, AUTOMATED 197 10^3/uL (150-450); RED BLOOD COUNT 4.12 10^6/uL (4.00-5.40); WHITE BLOOD COUNT 5.9 10^3/uL (4.0-10.0)
[2019-07-24 17:44] LABS: INR 1.05; PROTHROMBIN TIME 13.4 SECONDS (11.8-14.0)
[2019-07-24 18:01] LABS: ALBUMIN 4.2 GM/DL (3.2-5.2); ALT/SGPT 25 U/L (12-78); BLOOD UREA NITROGEN 13 MG/DL (7-18); CALCIUM LEVEL 8.9 MG/DL (8.5-10.1); CARBON DIOXIDE LEVEL 29 MEQ/L (21-32); CHLORIDE LEVEL 105 MEQ/L (98-107); CREATININE FOR GFR 0.89 MG/DL (0.55-1.30); GLOMERULAR FILTRATION RATE > 60.0 (>58); GLUCOSE, FASTING 96 MG/DL (70-100); POTASSIUM SERUM 3.9 MEQ/L (3.5-5.1); SODIUM LEVEL 139 MEQ/L (136-145); TOTAL PROTEIN 6.9 GM/DL (6.4-8.2)
== END ==
LOC: M LRY 11:24
PROVIDERS: ATTEND Family Medicine
DX: R10.2 Pelvic and perineal pain (principal)

== ENCOUNTER 2019-08-02 10:58 | Day surgery (SDC) | payer BC ==
[~2019-08-02] VITALS: Ht 182.9 cm; Wt 89.4 kg
[~2019-08-02 10:58] MED LIST changes: +LIDOCAINE 2% INJ 100 MG/5 ML SDV (FOR ANES.) As Ordered ONE; +LR 1,000 ML IV ONE; +MIDAZOLAM INJ 2 MG/2 ML VIAL (J2250) As Ordered ONE; +ONDANSETRON 4MG/2ML VIAL (J2405) As Ordered ONE; +ROCURONIUM BROMIDE 50 MG/5 ML VIAL As Ordered ONE; +ceFAZolin SOD 2 GM in IV 1 EA IV ONE; +dexameTHASONE 4 MG/ML 1ML VIAL (J1100) As Ordered ONE; +fentaNYL 250 MCG/5 ML INJECTION (J3010) As Ordered ONE; +propofoL 200 MG/20 ML VIAL As Ordered ONE
[2019-08-02] MEDS ORDERED: ACETAMINOPHEN 1000MG 100ML IV BTL (OFIRMEV) (J0131 PER 10MG) As Ordered ONE (12:33)
[2019-08-02] MEDS ORDERED: KETOROLAC 60 MG/2 ML VIAL (J1885) As Ordered ONE (12:34)
[2019-08-02] MEDS ORDERED: SUGAMMADEX SODIUM 500 MG/5 ML VIAL (BRIDION) As Ordered ONE (12:34)
[2019-08-02] MEDS ORDERED: ROCURONIUM BROMIDE 50 MG/5 ML VIAL As Ordered ONE (13:14)
[2019-08-02] MEDS ORDERED: oxyCODONE 5MG TAB PO PRN (14:00)
[2019-08-02] MEDS ORDERED: ONDANSETRON 4MG/2ML VIAL (J2405) IV PRN (14:00)
[2019-08-02] MEDS ORDERED: fentaNYL 100 MCG/2 ML INJECTION (J3010) IV PRN (14:00)
[2019-08-02] MEDS ORDERED: NORCO, ANEXSIA 5/325MG TABLET (HYDROcodone/ACETAMINOPHEN) PO PRN (14:00)
[2019-08-02] MEDS ORDERED: LR 1,000 ML IV SCH ×2 (14:00)
--- NOTE | 2019-08-02 14:32 | RO ---
DATE OF PROCEDURE: 08/02/2019 PREPROCEDURE DIAGNOSIS: Pain. POSTPROCEDURE DIAGNOSIS: Pain. PROCEDURE: Laparoscopy with lysis of adhesions, as well as cystourethroscopy with biopsy. SURGEON: Clarisa Santillan MD FABRIC FINISHER: None. ANESTHESIA: General endotracheal anesthesia. DESCRIPTION OF PROCEDURE/FINDINGS: Yanni was brought to the operating room where sufficient general endotracheal anesthesia was induced. She was prepped, draped and positioned in the usual sterile fashion. Of course she had no uterus so a sponge and a stick were used for vaginal manipulation and the bladder was of course emptied. Attention was then turned to the abdomen. A transverse semilunar incision was made at the umbilicus and sharp and blunt dissection continued through subcutaneous tissues to the level of the rectus fascia, which was grasped with Hipolito clamps, transversely incised under direct visualization and the peritoneum entered direct visualization with 0 Vicryl retention sutures placed and then the Owen cannula placed and secured with 0 Vicryl retention sutures and was then opened in laparoscopic technique. CO2 insufflation was then begun. After adequate CO2 insufflation, the peritoneal cavity was visualized. There were normal shiny peritoneal surfaces throughout. There were no excrescences, ascites or exudate. There was no evidence of endometriosis or other such intraperitoneal pathology other than adhesions, much of those appeared to be postsurgical. As noted in the operative photos along the left abdomen and pelvis, there were extensive adhesions. The ovaries were normal in appearance, as were the two remnants that remained, but also over the vaginal cuff, there were extensive adhesions of the bowel and several adhesions of the bowel to the bladder. Using the vaginal manipulator, we were able to elevate and manipulate the vagina and using steep Trendelenburg, we were able to manipulate softly the bowel and then using the operative port at the umbilical Owen laparoscope, we were then able to use cold scissors to take down all of the adhesions, pictures were taken to document this process and the progress made. Initially, there were extensive adhesions to the bladder and vaginal cuff and by the end, as noted in the photos, we had the cuff and the bladder entirely free of adhesions and no significant evidence of bleeding or any evidence of bladder, ureteral or bowel injury. With photos then further taken, the laparoscopic part of the procedure was ended, CO2 was allowed to escape the abdomen and the fascial wound at the umbilicus was closed using a 0 Vicryl retention sutures and 3-0 Vicryl were used at the skin in a subcuticular stitch with good approximation and hemostasis at both layers. A dry sterile dressing was then applied and attention was turned to the cystoscopy. With the cystoscope, we were able to visualize normal bladder contours. No polyps. There was a little bit of friability over some metaplasia at the trigone, and normal jets of urine from the ureters and some minor evidence of scarring around the bladder, consistent with the patient being 48, but no significant sacculation of the wall or outright distortion. We did use a tiny biopsier to sample the area that I think is just metaplasia, a very small biopsy was obtained there just to confirm that this is what that is. I do not see any obvious cystoscopic evidence of interstitial cystitis. I did not see any evidence of any illness that would be better with distention of the bladder. She does have a little laxity at the urethral meatus, but that was present prior to initiation of the case and is likely not at all related to the patient's pelvic and bladder pain. After the biopsy and after examining the site to make sure that there was no undo bleeding, I went ahead and stopped the cystoscopy as well and ended the procedure. ESTIMATED BLOOD LOSS: About 3 mL. FLUID REPLACEMENT: Crystalloid. COMPLICATIONS: None. CONDITION AND DISPOSITION: Yanni tolerated the procedure well and was recovering in the recovery room in good condition.
[2019-08-02 15:48] VITALS: BP 124/80
== END 2019-08-02 15:50 | disposition home or self-care (01) ==
LOC: M SDC 10:58
PROVIDERS: ATTEND Obstetrics & Gynecology
DX: R10.2 Pelvic and perineal pain (principal); R39.89 Other symptoms and signs involving the genitourinary system; N99.4 Postprocedural pelvic peritoneal adhesions; K66.0 Peritoneal adhesions (postprocedural) (postinfection); N32.89 Other specified disorders of bladder; R10.32 Left lower quadrant pain; E03.8 Other specified hypothyroidism; K21.9 Gastro-esophageal reflux disease without esophagitis; N39.3 Stress incontinence (female) (male); M51.36 Other intervertebral disc degeneration, lumbar region; I34.1 Nonrheumatic mitral (valve) prolapse; J00 Acute nasopharyngitis [common cold]; Z79.899 Other long term (current) drug therapy; Z79.1 Long term (current) use of non-steroidal anti-inflammatories (NSAID); Z88.1 Allergy status to other antibiotic agents; Z88.8 Allergy status to other drugs, medicaments and biological substances; Z88.2 Allergy status to sulfonamides; Z91.040 Latex allergy status
CPT/HCPCS: 52204; 58660; 88305; J0131; J0690; J1100; J1885; J2250; J2405; J3010

== ENCOUNTER → 2019-08-26 | Outpatient (CLI) | payer BC ==
[~2019-08-26] MED LIST changes: +DOXY100C PO; +IBUP1TAB6 PO; -LIDOCAINE 2% INJ 100 MG/5 ML SDV (FOR ANES.) As Ordered ONE; -LR 1,000 ML IV ONE; -MIDAZOLAM INJ 2 MG/2 ML VIAL (J2250) As Ordered ONE; -ONDANSETRON 4MG/2ML VIAL (J2405) As Ordered ONE; +PRED20TA PO; -ROCURONIUM BROMIDE 50 MG/5 ML VIAL As Ordered ONE; +VITMTA PO; -ceFAZolin SOD 2 GM in IV 1 EA IV ONE; -dexameTHASONE 4 MG/ML 1ML VIAL (J1100) As Ordered ONE; -fentaNYL 250 MCG/5 ML INJECTION (J3010) As Ordered ONE; -propofoL 200 MG/20 ML VIAL As Ordered ONE
--- NOTE | 2019-08-26 09:42 | REP ---
CHEST: Two views. There is no evidence of acute infiltrate. No pleural effusion is seen. The heart is normal in size. The mediastinal silhouette is unremarkable. The visualized osseous structures are intact. IMPRESSION: No acute pulmonary disease. Electronically Signed by Clovis Madrid MD 08/26/2019 06:28 P
== END ==
LOC: M LRY 08:55
PROVIDERS: ATTEND Nurse Practitioner Family
DX: R06.02 Shortness of breath (principal)

== ENCOUNTER 2019-08-28 17:20 | Observation (INO) | payer BC ==
[~2019-08-28] VITALS: Ht 182.9 cm; Wt 88.9 kg
[~2019-08-28 17:20] MED LIST changes: -DOXY100C PO; -IBUP1TAB6 PO; -PRED20TA PO; -VITMTA PO
[2019-08-28 17:57] LABS: BASO % 0.4 % (0.0-1.0); EOS % 0.1 % (0.0-3.0); HEMATOCRIT 36.8 % (36.0-47.0); HEMOGLOBIN 12.7 g/dl (12.0-15.5); LYMPH % 12.8 % (24.0-44.0); MEAN CORPUSCULAR HGB CONC 34.5 g/dl (32.0-36.5); MEAN CORPUSCULAR VOLUME 89.8 fl (80.0-96.0); MONO # 0.1 10^3/uL (0.0-0.8); MONO % 1.6 % (0.0-5.0); NEUTROPHILS # 6.7 10^3/uL (1.5-8.5); NEUTROPHILS % 84.6 % (36.0-66.0); PLATELET COUNT, AUTOMATED 240 10^3/uL (150-450); WHITE BLOOD COUNT 7.9 10^3/uL (4.0-10.0)
[2019-08-28 18:21] LABS: BLOOD UREA NITROGEN 18 MG/DL (7-18); CARBON DIOXIDE LEVEL 23 MEQ/L (21-32); CHLORIDE LEVEL 107 MEQ/L (98-107); CK-MB VALUE MASS < 1.0 NG/ML (<3.6); CPK CREATINE PHOSPHOKINASE 77 U/L (26-192); CREATININE FOR GFR 0.92 MG/DL (0.55-1.30); GLOMERULAR FILTRATION RATE > 60.0 (>58); GLUCOSE, FASTING 108 MG/DL (70-100); POTASSIUM SERUM 3.8 MEQ/L (3.5-5.1); SODIUM LEVEL 138 MEQ/L (136-145); TROPONIN I < 0.02 NG/ML (< 0.10)
--- NOTE | 2019-08-28 19:33 | REP ---
CHEST, SINGLE VIEW: There is no evidence of acute infiltrate. No pleural effusion is seen. The heart is normal in size. The mediastinal silhouette is unremarkable. The visualized osseous structures are intact. IMPRESSION: No acute pulmonary disease. Electronically Signed by Clovis Madrid MD 08/29/2019 03:49 P
[2019-08-28] MEDS ORDERED: ISOVUE-370 76% 100ML VIAL (Q9967) As Ordered ONE (20:03)
[2019-08-28 20:24] LABS: FREE THYROXINE INDEX 3.2 % (1.3-4.8); T UPTAKE 33 % (30-39); THYROXINE (T4) 9.6 UG/DL (4.5-12.0)
--- NOTE | 2019-08-28 20:50 | REPVR ---
PROCEDURE INFORMATION: Exam: CT Angiography Chest With Contrast Exam date and time: 08/28/2019 8:23 PM Age: 48 years old Clinical indication: Chest pain TECHNIQUE: Imaging protocol: Computed tomographic angiography of the chest with intravenous contrast. 3D rendering: MIP reconstructed images were created by the technologist. Radiation optimization: All CT scans at this facility use at least one of these dose optimization techniques: automated exposure control; mA and/or kV adjustment per patient size (includes targeted exams where dose is matched to clinical indication); or iterative reconstruction. Contrast material: ISOVUE 370; Contrast volume: 75 ml; Contrast route: IV; COMPARISON: CR PORTABLE CHEST X-RAY 08/28/2019 5:39 PM FINDINGS: Pulmonary arteries: No pulmonary embolism. Great vessels off aortic arch: The brachiocephalic artery, imaged proximal portion of the left common carotid artery, and left subclavian artery are intact. No stenosis or occlusion of these vessels is noted. Aorta: There is no thoracic aortic aneurysm, pseudoaneurysm, penetrating atherosclerotic ulcer, intramural hematoma, or dissection. Lungs: There is mild dependent atelectasis in both lower lobes. There is a 4 mm solid pulmonary nodule in the right lower lobe (image 108 of the axial series 401). There is a 4 mm solid pulmonary nodule in the left upper lobe (image 68 of the axial series 401). The lungs are otherwise clear. There is no lung consolidation, pulmonary infarct, or mass. No emphysematous changes or interstitial lung disease is noted. The major airways are patent. Pleural space: Unremarkable. No pneumothorax. No pleural effusion. Heart: No cardiomegaly. No pericardial effusion. The ratio of the diameter of the right ventricle to the diameter of the left ventricle measures less than 1, which is within normal limits and there is no evidence for a right ventricular strain. Mediastinum: No mediastinal mass, hemorrhage, or pneumomediastinum is noted. Liver: There is a 16 mm cyst in the right hepatic lobe for which follow-up is not necessary. The liver was not fully imaged. Adrenals: Normal. No adrenal mass is noted. Lymph nodes: No enlarged lymph nodes. Bones/joints: The imaged bony structures are intact. There is no suspicious osteolytic or osteoblastic lesion. Soft tissues: Unremarkable. IMPRESSION: 1. No acute findings in the chest. No pulmonary embolism. 2. No thoracic aortic aneurysm, pseudoaneurysm, intramural hematoma, penetrating atherosclerotic ulcer, or dissection. 3. 4 mm solid pulmonary nodule in the right lower lobe and a 4 mm solid pulmonary nodule in the left upper lobe. See management guidelines below. FLEISCHNER SOCIETY 2017 GUIDELINES FOR MANAGEMENT OF INCIDENTAL PULMONARY NODULES: Multiple solid nodules <6 mm: In a low risk patient, no routine follow-up. In a high risk patient, optional CT at 12 months. Use most suspicious nodule as guide to management. Follow-up intervals may vary according to size and risk. High Risk Patients as defined in the 2017 Fleischner Society Guidelines: ?History of heavy smoking ?Exposure to asbestos, radium, or uranium ?Family history of lung cancer ?Emphysema and pulmonary fibrosis (IPF in particular) ?Older age ?Sex (females at greater risk than men) ?Race (Blacks and at higher risk) ?Marginal spiculation / suspicious morphology ?Upper lobe location (also apex) ?Multiple nodules (2-5 nodules highest risk) ?Exceptions, such as technically suboptimal scanning Jluis H, Kalani DP, Darreno ILEANA, et al. Guidelines for Management of Incidental Pulmonary Nodules Detected on CT images: From the Fleischner Society 2017. Radiology, December 2016;284(1):228-243. http://pubs.rsna.org/doi/pdf/10.1148/[email or web address] Electronically signed by: Fabiano Joyner On 08/28/2019 20:50:44 PM
[2019-08-28] MEDS ORDERED: DOXYCYCLINE HYCLATE 100 MG TAB PO SCH (21:00)
[2019-08-28] MEDS ORDERED: VITAMIN D 1,000 INTERNATIONAL UNITS TABLET PO SCH (21:00)
[2019-08-28] MEDS ORDERED: NS 1,000 ML IV ONE (22:30)
[2019-08-28] MEDS ORDERED: IBUP1TAB6 PO (23:18)
[2019-08-28] MEDS ORDERED: VITMTA PO (23:18)
[2019-08-28] MEDS ORDERED: KETO10TAB PO (23:18)
[2019-08-28] MEDS ORDERED: PRED20TA PO (23:18)
[2019-08-28] MEDS ORDERED: DOXY100C PO (23:18)
[2019-08-29] MEDS ORDERED: MAALOX 30 ML SUSP *UDC PO PRN
[2019-08-29] MEDS ORDERED: ACETAMINOPHEN TAB 650MG DOSE (2X325MG) PO PRN
[2019-08-29] MEDS ORDERED: MOM 30ML SUSPENSION UDC PO PRN
[2019-08-29] MEDS ORDERED: ASPIRIN 81 MG CHEW TABLET PO ONE (00:30)
[2019-08-29] MEDS: NITROGLYCERIN 0.4 MG SUBL TABLET SL PRN ×3 (00:54→01:07)
[2019-08-29] MEDS ORDERED: KETOROLAC TROMETHAMINE 10 MG TAB PO PRN (01:00)
[2019-08-29] MEDS ORDERED: IBUPROFEN 600 MG TAB PO PRN (01:00)
[2019-08-29 01:06] VITALS: BP 140/92
[2019-08-29 01:07] VITALS: BP 140/84
[2019-08-29 01:20] VITALS: BP 124/77
[2019-08-29 01:30] VITALS: BP 124/77; PULSE 84
[2019-08-29 01:33] LABS: HEMOGLOBIN A1c 4.4 %
[2019-08-29 01:56] LABS: CHOLESTEROL LEVEL 231 MG/DL (<200); CHOLESTEROL RISK RATIO 3.609 (<5); HDL CHOLESTEROL 64 MG/DL (>40); LDL CHOLESTEROL 146 MG/DL (<100); NON-HDL-C 167 MG/DL; TRIGLYCERIDES LEVEL 104 MG/DL (<150); TROPONIN I < 0.02 NG/ML (< 0.10)
[2019-08-29] MEDS ORDERED: GI COCKTAIL 50ML BTL(HYOSCYAMINE/MAALOX/LIDOCAINE VISCOUS)(1:3:1) PO ONE (02:00)
--- NOTE | 2019-08-29 05:10 | HPEPDOC ---
[facility] Medical History & Physical Date of Admission Aug 28, 2019 Date of Service: Aug 29, 2019 Primary Care Physician: ALLEY MELENDEZ DO Attending Physician: YKLIE ROBERTSON MD History and Physical TIME OF SERVICE: 12:05 AM CHIEF COMPLAINT: Chest pain HISTORY OF PRESENT ILLNESS: This is a 48 old female who presented with complaints of left sided 2-7 /10 in severity relapsing and remitting chest "heaviness" that has been occurring for the last 4 days. She cannot identify any aggravating or alleviating factors. The pain did not improve despite taking NSAIDs and antacids. She also been feeling weak, feeling dizzy , and seeing spots. She denies coughing, denies any muscle aches, denies having fevers, denies having chills, and denies being under an unusual amount of stress. REVIEW OF SYSTEMS: 12 point review of systems negative except as listed in HPI PAST MEDICAL/ SURGICAL HISTORY: Hypothyroidism AVNRT status post ablation. Status post laparoscopic adhesion lysis. Status post cystectomy. Status post . Status post bladder suspension procedure with mesh placement SOCIAL HISTORY: She doesn't smoke. 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 HOME MEDICATIONS: Please see below. PHYSICAL EXAMINATION: VITAL SIGNS: Please see below. GEN: well-nourished / well developed INTEGUMENT: not flushed/ not jaundice HEENT: normocephalic / atraumatic / lips acyanotic /mucus membranes moist and pink / sclera anicteric CVS: RRR/NMRG/no lower extremity edema/ left-sided chest pain is not reproducible with palpation of the chest LUNGS: able to speak full sentences without stopping to take a breath / no coughing / lungs are clear to auscultation bilaterally on room air ABDOMEN: Contour (flat ) / soft & not tender with palpation MSK/EXTREMITIES: range of motion intact in all 4 extremities NEURO: CN 2-12 are grossly intact / speech is not dysarthric PSYCH: alert and oriented to person place and time/ able to understand and follow all commands LABORATORY DATA: See below. IMAGING: Chest x-ray " IMPRESSION: No acute pulmonary disease." CT chest " IMPRESSION: 1. No acute findings in the chest. No pulmonary embolism. 2. No thoracic aortic aneurysm, pseudoaneurysm, intramural hematoma, penetrating atherosclerotic ulcer, or dissection. 3. 4 mm solid pulmonary nodule in the right lower lobe and a 4 mm solid pulmonary nodule in the left upper lobe. See management guidelines below. " MICROBIOLOGY: Please see below. ASSESSMENT: Ms. Vogel is a 48-year-old with past medical history of hypothyroidism, AVNRT s/p ablation and multiple abdominal surgeries, who is admitted for evaluation of chest pain. PLAN: 1.Chest Pain Cause to be determined The workup so far is unremarkable Plan: admit to medical floor/ telemetry / 2 more troponins, BNP, lipid panel / Acetaminophen & Nitro PRN for chest pain to reduce preload and after load / ASA, Statin 2. Weakness - Plan: PT Eval 3. Pulmonary Nodules - Plan: f/u with PCP to discuss surveillance 4. Hypothyroidism - Plan: Levothyroxine 5. Overactive Bladder - Plan: Trospium DVT PROPHYLAXIS: SCDs DISPOSITION: likely home tomorrow Vital Signs Vital Signs Date Time Temp Pulse Resp B/P (MAP) Pulse Ox O2 Delivery O2 Flow Rate FiO2 08/29/19 01:20 98.5 84 18 124/77 (93) 99 Room Air Laboratory Data Labs 24H Laboratory Tests 2 08/28/19 17:40: Immature Granulocyte % (Auto) 0.5, Neutrophils (%) (Auto) 84.6H, Lymphocytes (%) (Auto) 12.8L, Monocytes (%) (Auto) 1.6, Eosinophils (%) (Auto) 0.1, Basophils (%) (Auto) 0.4, Neutrophils # (Auto) 6.7, Lymphocytes # (Auto) 1.0L, Monocytes # (Auto) 0.1, Eosinophils # (Auto) 0.0, Basophils # (Auto) 0.0, Nucleated Red Blood Cells % (auto) 0.0, Anion Gap 8, Glomerular Filtration Rate > 60.0, Calcium Level 9.0, Total Creatine Kinase 77, Creatine Kinase MB < 1.0, Creatine Kinase MB Relative Index 1.30, Troponin I < 0.02, Thyroid Stimulating Hormone (TSH) 1.510, Free Thyroxine Index 3.2, Thyroxine (T4) 9.6, Triiodothyronine (T3) Uptake 33 08/29/19 00:52: Troponin I < 0.02, Estimated Mean Plasma Glucose 80, Hemoglobin A1c 4.4, Triglycerides Level 104, Total Cholesterol 231H, LDL Cholesterol 146H, Non-HDL Cholesterol (LDL + VLDL) 167, Total HDL Cholesterol 64, Cholesterol/HDL Ratio 3.609 CBC/BMP Laboratory Tests 08/28/19 17:40 Microbiology Microbiology 08/28/19 Respiratory Virus Panel (PCR) ([facility]) - Final, Complete Home Medications Scheduled Doxycycline Hyclate (Doxycycline Hyclate) 100 Mg Capsule, 100 MG PO Q12H TAKEN 4 OF 20 DOSES Ergocalciferol (Vitamin D2) (Vitamin D2) 2,000 Unit Tablet, 4,000 UNIT PO QHS Escitalopram Oxalate (Lexapro) 10 Mg Tab, 10 MG PO DAILY Levothyroxine Sodium (Synthroid) 50 Mcg Tab, 50 MCG PO DAILY Multivitamins (Thera M Plus Tablet) 1 Each Tablet, 1 TAB PO QHS Prednisone (Prednisone) 20 Mg Tablet, 20 MG PO DAILY HAS TAKEN 2 OF 5 DOSES Trospium Chloride (Trospium Chloride ER) 60 Mg Cap.er.24h, 60 MG PO DAILY Scheduled PRN Ibuprofen (Ibuprofen) 600 Mg Tablet, 600 MG PO Q6H PRN for PAIN Ketorolac Tromethamine (Ketorolac Tromethamine) 10 Mg Tablet, 10 MG PO Q6H PRN for PAIN Naproxen (Naproxen) 500 Mg Tablet, 500 MG PO BID PRN for PAIN Allergies Coded Allergies: Sulfa (Sulfonamide Antibiotics) (Verified Allergy, Intermediate, RASH, 07/16/19) latex (Verified Adverse Reaction, Intermediate, RASH, 07/16/19) prochlorperazine (Verified Adverse Reaction, Intermediate, AGITATION, 07/16/19) A-FIB/CHADSVASC A-FIB History Current/History of A-Fib/PAF?: No Current PO Anticoag Therapy: No KYLIE ROBERTSON MD Aug 29, 2019 05:10
[2019-08-29] MEDS ORDERED: LEVOTHYROXINE 50MCG TABLET (0.05MG) PO SCH (06:00)
[2019-08-29 06:40] LABS: HEMATOCRIT 32.3 % (36.0-47.0); HEMOGLOBIN 11.2 g/dl (12.0-15.5); MEAN CORPUSCULAR HEMOGLOBIN 31.1 pg (27.0-33.0); MEAN CORPUSCULAR HGB CONC 34.7 g/dl (32.0-36.5); MEAN CORPUSCULAR VOLUME 89.7 fl (80.0-96.0); PLATELET COUNT, AUTOMATED 201 10^3/uL (150-450); WHITE BLOOD COUNT 8.2 10^3/uL (4.0-10.0)
[2019-08-29 07:01] LABS: BLOOD UREA NITROGEN 14 MG/DL (7-18); CARBON DIOXIDE LEVEL 26 MEQ/L (21-32); CHLORIDE LEVEL 112 MEQ/L (98-107); CREATININE FOR GFR 0.74 MG/DL (0.55-1.30); GLOMERULAR FILTRATION RATE > 60.0 (>58); GLUCOSE, FASTING 81 MG/DL (70-100); POTASSIUM SERUM 3.5 MEQ/L (3.5-5.1); SODIUM LEVEL 144 MEQ/L (136-145)
[2019-08-29 08:00] VITALS: BP 119/70
[2019-08-29] MEDS ORDERED: POTASSIUM CHLORIDE 10 MEQ SR TABLET PO ONE (08:00)
[2019-08-29] MEDS ORDERED: ASPIRIN 81 MG CHEW TABLET PO SCH (09:00)
[2019-08-29] MEDS ORDERED: predniSONE 20 MG TAB PO SCH (09:00)
[2019-08-29] MEDS ORDERED: ENTER DRUG NAME HERE (PATIENT'S OWN MED) PO SCH (09:00)
[2019-08-29] MEDS ORDERED: ESCITALOPRAM OXALATE 10 MG TAB (LEXAPRO) PO SCH (09:00)
[2019-08-29] MEDS ORDERED: DOCUSATE SODIUM 100 MG CAP PO SCH (09:00)
[2019-08-29] MEDS ORDERED: ASPI81CH8 PO (10:30)
[2019-08-29 12:00] VITALS: BP 126/85
--- NOTE | 2019-08-29 13:32 | DS.PDOC ---
Discharge Summary General Date of Admission Aug 28, 2019 at 22:43 Date of Discharge 08/29/2019 Discharge Summary PROCEDURES PERFORMED DURING STAY: [None]. ADMITTING DIAGNOSES / DISCHARGE DIAGNOSES: Chest Pain Weakness Pulmonary Nodules - advised patient of findings on imaging and need for outpatient follow / repeat imaging - patient has verbalized understanding Hypothyroidism Overactive Bladder DVT prophylaxis COMPLICATIONS/CHIEF COMPLAINT: Weakness. HISTORY OF PRESENT ILLNESS / HOSPITAL COURSE: Patient is a 48-year-old female with a past medical history of AVNRT status post ablation, hypothyroidism who presented to the emergency room with complaints of left-sided chest discomfort. Patient reported the pain as a 7/10 at its high intensity, and at 2/10 at its lowest. Patient reported that she had taken NSAIDs and antacids without any significant relief. Her symptoms. Patient did report associated weakness, dizziness and shortness of breath. However, she denied any excessive sweating, nausea or vomiting. Patient had received CT angiogram of her chest that was negative for any acute findings. She had an electrocardiogram completed that did not reveal any evidence of ischemic changes. Patient was kept on telemetry monitoring without any events noted overnight. . Currently, patient is completely asymptomatic. I have called and discussed the case with cardiology who will be seeing her as an outpatient. Patient has been scheduled for follow-up with Dr. butler, within the next 7 days. Physical therapy has seen and evaluated the patient who have recommended that she continue with outpatient vestibular therapy. At this point. Patient has been on prednisone as an outpatient, will continue this upon discharge. Patient has been advised to follow-up with her primary care provider, Dr. Sonia spangler and follow-up with cardiology, Dr. Cardenas within the next 7 days. . She has been advised to remain compliant with treatment planning medications and return to the emergency room if she experiences any problems. DISCHARGE MEDICATIONS: Please see below. ALLERGIES: Please see below. PHYSICAL EXAMINATION ON DISCHARGE: Vitals (See below) General: Lying in bed, no acute distress, comfortable, AAOx3 HEENT: NC, AT CVS: RRR, +S1S2 Lungs: Fair air entry b/l, -w/r/r Abdomen: Soft, ND, NT Extremities: - Edema, - Calf tenderness LABORATORY DATA: Please see below. ACTIVITY: [As tolerated]. DISCHARGE PLAN: Patient has been advised to follow-up with her primary care provider, Dr. Sonia Sergo note and follow-up with cardiology, Dr. Cardenas within the next 7 days. She has been advised to remain compliant with treatment planning medications and return to the emergency room if she experiences any problems. DISPOSITION: Home, Self-Care. DISCHARGE CONDITION: [Stable]. TIME SPENT ON DISCHARGE: 20 minutes Vital Signs/I&Os Vital Signs Date Time Temp Pulse Resp B/P (MAP) Pulse Ox O2 Delivery O2 Flow Rate FiO2 08/29/19 12:00 98.6 74 20 126/85 (99) 97 Room Air 08/29/19 01:30 2.0 I&O- Last 24 Hours up to 6 AM 08/29/19 06:00 Intake Total 1000 ml Output Total 0 ml Balance 1000 ml Laboratory Data Labs 24H Laboratory Tests 2 08/28/19 17:40: Immature Granulocyte % (Auto) 0.5, Neutrophils (%) (Auto) 84.6H, Lymphocytes (%) (Auto) 12.8L, Monocytes (%) (Auto) 1.6, Eosinophils (%) (Auto) 0.1, Basophils (%) (Auto) 0.4, Neutrophils # (Auto) 6.7, Lymphocytes # (Auto) 1.0L, Monocytes # (Auto) 0.1, Eosinophils # (Auto) 0.0, Basophils # (Auto) 0.0, Nucleated Red Blood Cells % (auto) 0.0, Anion Gap 8, Glomerular Filtration Rate > 60.0, Calcium Level 9.0, Total Creatine Kinase 77, Creatine Kinase MB < 1.0, Creatine Kinase MB Relative Index 1.30, Troponin I < 0.02, Thyroid Stimulating Hormone (TSH) 1.510, Free Thyroxine Index 3.2, Thyroxine (T4) 9.6, Triiodothyronine (T3) Uptake 33 08/29/19 00:52: Troponin I < 0.02, Estimated Mean Plasma Glucose 80, Hemoglobin A1c 4.4, Triglycerides Level 104, Total Cholesterol 231H, LDL Cholesterol 146H, Non-HDL Cholesterol (LDL + VLDL) 167, Total HDL Cholesterol 64, Cholesterol/HDL Ratio 3.609 08/29/19 06:20: Nucleated Red Blood Cells % (auto) 0.0, Anion Gap 6L, Glomerular Filtration Rate > 60.0, Calcium Level 8.0L, Troponin I < 0.02, RD-Dry-Y-Type Natriuretic Peptide 150H CBC/BMP Laboratory Tests 08/28/19 17:40 08/29/19 06:20 Microbiology Microbiology 08/28/19 Respiratory Virus Panel (PCR) ([facility]) - Final, Complete Discharge Medications Scheduled Aspirin (Children's Aspirin) 81 Mg Tab.chew, 81 MG PO DAILY Ergocalciferol (Vitamin D2) (Vitamin D2) 2,000 Unit Tablet, 4,000 UNIT PO QHS, (Reported) Escitalopram Oxalate (Lexapro) 10 Mg Tab, 10 MG PO DAILY, (Reported) Levothyroxine Sodium (Synthroid) 50 Mcg Tab, 50 MCG PO DAILY, (Reported) Multivitamins (Thera M Plus Tablet) 1 Each Tablet, 1 TAB PO QHS, (Reported) Prednisone (Prednisone) 20 Mg Tablet, 20 MG PO DAILY, (Reported) HAS TAKEN 2 OF 5 DOSES Trospium Chloride (Trospium Chloride ER) 60 Mg Cap.er.24h, 60 MG PO DAILY, (Reported) Scheduled PRN Ibuprofen (Ibuprofen) 600 Mg Tablet, 600 MG PO Q6H PRN for PAIN, (Reported) Naproxen (Naproxen) 500 Mg Tablet, 500 MG PO BID PRN for PAIN, (Reported) Allergies Coded Allergies: Sulfa (Sulfonamide Antibiotics) (Verified Allergy, Intermediate, RASH, 07/16/19) latex (Verified Adverse Reaction, Intermediate, RASH, 07/16/19) prochlorperazine (Verified Adverse Reaction, Intermediate, AGITATION, 07/16/19) LAZARO EASLEY MD Aug 29, 2019 13:32
--- NOTE | 2019-08-30 06:34 | ECGEPIP ---
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
--- NOTE | 2019-08-31 14:29 | ECGEPIP ---
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
== END 2019-08-29 12:33 | disposition home or self-care (01) ==
LOC: M ED 17:20 → M ED INP 22:43 → INTOOBSV 22:43 → ENRESERV 23:01 → M MS5PR 08-29 00:45 → M PCU 08-29 01:22
PROVIDERS: ADMIT Internal Medicine; ATTEND Internal Medicine
DX: R07.89 Other chest pain (principal); R53.1 Weakness; R91.8 Other nonspecific abnormal finding of lung field; E03.9 Hypothyroidism, unspecified; N32.81 Overactive bladder; Z79.82 Long term (current) use of aspirin; Z79.52 Long term (current) use of systemic steroids; Z91.040 Latex allergy status; Z88.2 Allergy status to sulfonamides; Z88.8 Allergy status to other drugs, medicaments and biological substances
CPT/HCPCS: 36415; 71045; 71275; 80048; 80061; 82550; 82553; 83036; 83880; 84436; 84443; 84479; 84484; 85025; 85027; 87486; 87581; 87633; 87798; 93005; 93041; 94760; 96374; 97112; 97116; 97161; 99285; Q9967

== ENCOUNTER → 2019-09-21 | Outpatient (CLI) | payer BC ==
[~2019-09-21] MED LIST changes: +ASPI81CH8 PO; +DOXY100C PO; +IBUP1TAB6 PO; +PRED20TA PO; +VITMTA PO
== END ==
LOC: M LABSMTC 13:57
PROVIDERS: ATTEND Family Medicine
DX: Z11.59 Encounter for screening for other viral diseases (principal); Z20.828 Contact with and (suspected) exposure to other viral communicable diseases
CPT/HCPCS: 87502; U0002

== ENCOUNTER → 2020-02-08 | Outpatient (REF) | payer BC | LOC: M LAB REF 14:46 | PROVIDERS: ATTEND Physician Assistant | DX: R30.0 Dysuria (principal) ==

== ENCOUNTER → 2020-03-17 | Outpatient (CLI) | payer BC ==
[~2020-03-17] MED LIST changes: +ISOVUE-370 76% 100ML VIAL As Ordered ONE
--- NOTE | 2020-03-28 07:36 | REP ---
CONTRAST-ENHANCED CHEST CT CLINICAL: Followup abnormal findings. TECHNIQUE: Axial contrast-enhanced images from the thoracic inlet to the upper abdomen with coronal and sagittal reformations using 75 cc of Isovue 370 intravenous contrast material. COMPARISON: 09/18/2019 and 08/28/2019. FINDINGS: The bilateral lung hwang are well-aerated and relatively clear, previously noted subtle ground-glass opacities, which may have represented elements of atelectasis, have resolved. The previously noted 5 mm nodule in the right lower lobe (image 68), as well as the 4 mm noncalcified nodule in the left upper lobe (image 34), remains stable. A few smaller scattered densities are also noted and unchanged. No consolidation, effusion, or pneumothorax. Tracheobronchial tree is patent. No axillary, hilar, or mediastinal adenopathy. Thoracic aorta, pulmonary vasculature, and heart/pericardium are normal. Surrounding musculoskeletal structures are intact and without acute osseous abnormality. Limited evaluation of the upper abdomen demonstrates stable, 2 cm hepatic cysts (image 98) and normal bilateral adrenal glands. IMPRESSION: * The small noncalcified nodules identified on prior examination remain stable. Again, low-risk patients require no further investigations, while high-risk patients would require 12-month followup examination from time of initial examination. * No new acute mediastinal or pleural parenchymal process otherwise appreciated. MTDD
== END ==
LOC: M RAD 10:37
PROVIDERS: ATTEND Physician Assistant
DX: R91.8 Other nonspecific abnormal finding of lung field (principal)
CPT/HCPCS: 71260; Q9967

== ENCOUNTER → 2020-04-09 | Outpatient (REF) | payer BC ==
[~2020-04-09] MED LIST changes: -ISOVUE-370 76% 100ML VIAL As Ordered ONE
[2020-04-09 13:14] LABS: BASO % 0.6 % (0.0-1.0); EOS # 0.3 10^3/uL (0.0-0.5); EOS % 5.1 % (0.0-3.0); HEMATOCRIT 38.5 % (36.0-47.0); HEMOGLOBIN 12.6 g/dl (12.0-15.5); LYMPH # 1.9 10^3/uL (1.5-5.0); LYMPH % 30.4 % (24.0-44.0); MEAN CORPUSCULAR HEMOGLOBIN 29.9 pg (27.0-33.0); MEAN CORPUSCULAR HGB CONC 32.7 g/dl (32.0-36.5); MEAN CORPUSCULAR VOLUME 91.4 fl (80.0-96.0); MONO # 0.4 10^3/uL (0.0-0.8); MONO % 5.9 % (0.0-5.0); NEUTROPHILS # 3.7 10^3/uL (1.5-8.5); NEUTROPHILS % 57.8 % (36.0-66.0); PLATELET COUNT, AUTOMATED 216 10^3/uL (150-450); RED BLOOD COUNT 4.21 10^6/uL (4.00-5.40); WHITE BLOOD COUNT 6.3 10^3/uL (4.0-10.0)
[2020-04-09 13:48] LABS: ALBUMIN 4.1 GM/DL (3.2-5.2); ALT/SGPT 23 U/L (12-78); BILIRUBIN,TOTAL 0.8 MG/DL (0.2-1.0); BLOOD UREA NITROGEN 15 MG/DL (7-18); CALCIUM LEVEL 9.6 MG/DL (8.5-10.1); CARBON DIOXIDE LEVEL 30 MEQ/L (21-32); CHLORIDE LEVEL 105 MEQ/L (98-107); CHOLESTEROL LEVEL 251 MG/DL (<200); CHOLESTEROL RISK RATIO 4.254 (<5); CREATININE FOR GFR 0.84 MG/DL (0.55-1.30); FREE T4 0.95 NG/DL (0.76-1.46); GLOMERULAR FILTRATION RATE > 60.0 (>58); GLUCOSE, FASTING 85 MG/DL (70-100); HDL CHOLESTEROL 59 MG/DL (>40); LDL CHOLESTEROL 163 MG/DL (<100); NON-HDL-C 192 MG/DL; POTASSIUM SERUM 4.6 MEQ/L (3.5-5.1); SODIUM LEVEL 141 MEQ/L (136-145); TOTAL 25(OH) VITAMIN D 36.3 NG/ML (30.0-100.0); TRIGLYCERIDES LEVEL 145 MG/DL (<150)
== END ==
LOC: M LABDRWAD 12:29
PROVIDERS: ATTEND Family Medicine
DX: Z13.220 Encounter for screening for lipoid disorders (principal); Z13.29 Encounter for screening for other suspected endocrine disorder; Z13.0 Encounter for screening for diseases of the blood and blood-forming organs and certain disorders involving the immune mechanism; E55.9 Vitamin D deficiency, unspecified

== ENCOUNTER → 2020-09-09 | Outpatient (REF) | payer BC ==
[2020-09-09 19:44] LABS: ALBUMIN 4.2 GM/DL (3.2-5.2); ALT/SGPT 17 U/L (12-78); BILIRUBIN,TOTAL 0.5 MG/DL (0.2-1.0); BLOOD UREA NITROGEN 17 MG/DL (7-18); CALCIUM LEVEL 8.7 MG/DL (8.5-10.1); CARBON DIOXIDE LEVEL 30 MEQ/L (21-32); CHLORIDE LEVEL 106 MEQ/L (98-107); CPK CREATINE PHOSPHOKINASE 86 U/L (26-192); CREATININE FOR GFR 0.84 MG/DL (0.55-1.30); FERRITIN 58 NG/ML (8-252); FREE T4 0.87 NG/DL (0.76-1.46); GLOMERULAR FILTRATION RATE > 60.0 (>58); GLUCOSE, FASTING 86 MG/DL (70-100); IRON (FE) 102 UG/DL (50-170); PERCENT SATURATION 29.2 % (13.2-45.0); POTASSIUM SERUM 4.1 MEQ/L (3.5-5.1); RHEUMATOID FACTOR QUANT < 10.0 IU/ML (<15.0); SODIUM LEVEL 140 MEQ/L (136-145); TOTAL IRON BINDING CAPACITY 349 UG/DL (250-450); TOTAL PROTEIN 7.3 GM/DL (6.4-8.2)
[2020-09-09 19:45] LABS: THYROID PEROXIDASE ANTIBODY < 28.0 U/ML (<60.0); TOTAL 25(OH) VITAMIN D 40.7 NG/ML (30.0-100.0); VITAMIN B12 LEVEL 672 PG/ML (247-911)
== END ==
LOC: M LABDRWAD 18:34
PROVIDERS: ATTEND Family Medicine
DX: R53.83 Other fatigue (principal)

== ENCOUNTER → 2020-09-18 | Outpatient (REF) | payer BC ==
[2020-09-19 10:53] LABS: ALBUMIN % 64.3 % (55.8-66.1); ALPHA-1-GLOBULIN % 3.8 % (2.9-4.9); ALPHA-1-GLOBULINS 0.27 GM/DL (0.17-0.41); ALPHA-2-GLOBULINS 0.66 GM/DL (0.42-0.99); ALPHA-2-GLOBULINS % 9.4 % (7.1-11.8); BETA-1-GLOBULINS % 5.7 % (4.7-7.2); BETA-2-GLOBULINS 0.29 GM/DL (0.19-0.55); BETA-2-GLOBULINS % 4.2 % (3.2-6.5); GAMMA GLOBULIN % 12.6 % (11.1-18.8); GAMMA GLOBULINS 0.88 GM/DL (0.65-1.58)
[2020-09-19 14:11] LABS: SSA SJOGRENS A <0.2 AI (0.0-0.9); SSB SJOGRENS B <0.2 AI (0.0-0.9)
== END ==
LOC: M LABDRWAD 12:35
PROVIDERS: ATTEND Psychiatry & Neurology Neurology
DX: G62.9 Polyneuropathy, unspecified (principal)

== ENCOUNTER → 2020-10-16 | Outpatient (CLI) | payer BC ==
--- NOTE | 2020-10-16 15:44 | REP ---
INDICATION: PAIN IN RIGHT FOOT COMPARISON: None. TECHNIQUE: AP, lateral, bilateral oblique views right foot. FINDINGS: Examination demonstrates relatively age-appropriate changes. There is focal increased sclerosis at the base of the 1st proximal phalanx suggesting early degenerative changes at the metatarsophalangeal (MTP) joint. No further overt arthritic changes are appreciated. No acute fracture or dislocation. IMPRESSION: Relatively age-appropriate examination. Very minimal early degenerative changes suggested at the 1st MTP joint. <Electronically signed by Kaleb Graham > 10/16/20 [id number]
== END ==
LOC: M ADAMS 15:13
PROVIDERS: ATTEND Family Medicine
DX: M25.571 Pain in right ankle and joints of right foot (principal)

== ENCOUNTER → 2020-11-21 | Outpatient (CLI) | payer BC ==
--- NOTE | 2020-11-21 12:46 | REP ---
INDICATION: PAIN. COMPARISON: None. TECHNIQUE: [place] and weight-bearing AP and lateral views of the right knee FINDINGS: Prior orthopedic fixation along the lateral tibial metaphysis with normal appearing hardware. Osseous structures, joint spaces, and surrounding soft tissues are relatively age-appropriate. No significant overt osteoarthritic findings. No evidence for acute fracture/injury. IMPRESSION: Normal postsurgical and age-appropriate examination. <Electronically signed by Kaleb Graham > 11/21/20 [id number]
== END ==
LOC: M SOG 10:03
PROVIDERS: ATTEND Orthopaedic Surgery Adult Reconstructive Orthopaedic Surgery
DX: M25.561 Pain in right knee (principal)

== ENCOUNTER → 2020-12-31 | Outpatient (CLI) | payer BC ==
[~2020-12-31] MED LIST changes: +PROHANCE 279.3MG/ML 15ML VIAL As Ordered ONE; +PROHANCE 279.3MG/ML 5ML VIAL As Ordered ONE
--- NOTE | 2020-12-31 20:18 | REPVR ---
PROCEDURE INFORMATION: Exam: MR Cervical Spine Without and With Contrast Exam date and time: 12/31/2020 6:26 PM Age: 50 years old Clinical indication: Disturbance of skin sensation; Paresthesia of skin; Additional info: Nelson foot/leg weakness/paresthesia of skin TECHNIQUE: Imaging protocol: Multiplanar magnetic resonance images of the cervical spine without and with contrast. Contrast material: PROHANCE; Contrast volume: 18 ml; Contrast route: INTRAVENOUS (IV); COMPARISON: CT Chest with contrast 03/17/2020 11:26 AM FINDINGS: Vertebrae: Unremarkable. Spinal cord: Normal signal. No cord compression. C2-C3: No significant disc disease. No significant spinal stenosis. C3-C4: No significant disc disease. No significant spinal stenosis. C4-C5: Broadly bulging annulus C4-C5 effaces the ventral subarachnoid space without cord impingement. Moderate left-sided foraminal narrowing. C5-C6: Broad posterior disc protrusion and intervertebral osteophytes at C5-C6 effaces the ventral subarachnoid space without significant cord impingement. Bilateral severe foraminal stenosis. C6-C7: Broad posterior disc protrusion at C6-C7 effaces the ventral subarachnoid with minimal cord impingement. There is moderate to severe bilateral foraminal stenosis. C7-T1: No significant disc disease. No significant spinal stenosis. Soft tissues: Unremarkable. Vertebral arteries: Expected flow voids in the vertebral arteries. IMPRESSION: 1. Degenerative changes with broad posterior disc protrusions at C5-C6 and C6-C7 and a broadly bulging annulus at C4-C5 resulting in minimal cord impingement at C6-C7. 2. There is multilevel foraminal stenosis as described above, moderate on the left at C4-C5, bilateral severe at C5-C6, and bilateral moderate to severe at C6-C7. Electronically signed by: José Miguel Mtz On 12/31/2020 20:18:26 PM
--- NOTE | 2020-12-31 20:24 | REPVR ---
PROCEDURE INFORMATION: Exam: MR Thoracic Spine Without and With Contrast Exam date and time: 12/31/2020 6:27 PM Age: 50 years old Clinical indication: Weakness; Additional info: Nelson foot/leg weakness/paresthesia of skin TECHNIQUE: Imaging protocol: Multiplanar magnetic resonance images of the thoracic spine without and with contrast. Contrast material: PROHANCE; Contrast volume: 18 ml; Contrast route: INTRAVENOUS (IV); COMPARISON: MRI-C SPINE W/O FOLL BY WITH 12/31/2020 5:23 PM FINDINGS: Vertebrae: Unremarkable. Spinal cord: Normal signal. No cord compression. There is no abnormal enhancement. Discs/Spinal canal/Neural foramina: Left posterior and foraminal disc protrusion at T5-6 with minimal left hemicord impingement. There is mild foraminal narrowing on the left. Left posterior foraminal disc protrusion at T6-7 effaces the ventrolateral aspect of the thecal sac on the left resulting in left-sided foraminal stenosis. Mild diffuse annular bulge at T7-T8 without neural compromise. Left posterior and foraminal disc protrusion at T8-9 with mild effacement of the ventral subarachnoid space and left-sided foraminal stenosis. There is no abnormal enhancement. Soft tissues: Unremarkable. IMPRESSION: Multilevel left-sided and foraminal disc protrusions at T5-6, T6-7, T7-8 and T8-9 resulting in mild left hemicord impingement at C5-C6. Multilevel foraminal stenosis demonstrated as described above. Electronically signed by: José Miguel Mtz On 12/31/2020 20:23:35 PM
== END ==
LOC: M RAD 16:43
PROVIDERS: ATTEND Psychiatry & Neurology Neurology
DX: M50.222 Other cervical disc displacement at C5-C6 level (principal); M50.223 Other cervical disc displacement at C6-C7 level; M50.123 Cervical disc disorder at C6-C7 level with radiculopathy; M48.02 Spinal stenosis, cervical region; M51.24 Other intervertebral disc displacement, thoracic region; R20.2 Paresthesia of skin
CPT/HCPCS: 72156; 72157; A9576

== ENCOUNTER → 2021-01-08 | Outpatient (CLI) | payer BC ==
[~2021-01-08] MED LIST changes: -PROHANCE 279.3MG/ML 15ML VIAL As Ordered ONE; -PROHANCE 279.3MG/ML 5ML VIAL As Ordered ONE
--- NOTE | 2021-01-08 12:32 | REP ---
INDICATION: TRAUMATIC ARTHROPATHY. COMPARISON: Comparison radiographs are from November 21, 2020.. TECHNIQUE: Axial, coronal, and sagittal imaging planes utilized. T1, proton density and T2 weighted scans are obtained in the usual fashion with without fat saturation. FINDINGS: There is metallic field susceptibility artifact in the region of the lateral tibial plateau. The radiographs demonstrate a metallic staple in the lateral tibial plateau. This obscures bone detail in the region of the staple itself. There is evidence of moderate chondromalacia in the lateral femoral condyle and lateral tibial plateau. The anterior horn of the lateral meniscus is obscured by the artifact on the coronal plane. It appears intact on the sagittal plane images. No posterior horn tear is seen in the lateral meniscus. The medial meniscus appears to be intact. There is a large nearly full-thickness articular cartilage lesion in the medial femoral condyle and there is minimal medial femoral condyle edema. There is also chondromalacia in the medial tibial plateau. The anterior and posterior cruciate ligaments appear intact. No medial or lateral collateral ligament disruption is seen. Patellar and quadriceps tendons are unremarkable. There is a moderate to large joint effusion in the suprapatellar bursa and a suprapatellar plica is seen spanning the suprapatellar bursa from medial to lateral. There is a Leos's cyst in the posterior popliteal soft tissues and edema is seen extending caudally into the myofascial tissue planes of the proximal calf. This raises the question of dissection of the Leos's cyst. Study is otherwise unremarkable. IMPRESSION: Status post metallic staple fixation in the lateral proximal tibial metaphysis, possibly related to fixation of the ileal tibial band. 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 A large , nearly full-thickness articular cartilage defect is seen in the medial femoral condyle. There is a large joint effusion and a suprapatellar plica is observed. Leos's cyst is seen with adjacent edema extending into the proximal calf surrounding the Leos's cyst; question dissection of the Leos's cyst. <Electronically signed by Nasim Hart > 01/08/21 [id number]
== END ==
LOC: M PLAIMG 11:13
PROVIDERS: ATTEND Orthopaedic Surgery Adult Reconstructive Orthopaedic Surgery
DX: M12.561 Traumatic arthropathy, right knee (principal); M71.21 Synovial cyst of popliteal space [Baker], right knee

== ENCOUNTER → 2021-01-22 | Outpatient (CLI) | payer BC ==
[~2021-01-22] MED LIST changes: +AMIT25TA17; +D31000TA2 PO; +ELET40TA; +GABA-282 PO; +RIZA10TA2
== END ==
LOC: M LABSMTC 10:40
PROVIDERS: ATTEND Anesthesiology
DX: Z20.828 Contact with and (suspected) exposure to other viral communicable diseases (principal); Z11.59 Encounter for screening for other viral diseases

== ENCOUNTER → 2021-01-25 | Outpatient (CLI) | payer BC ==
--- NOTE | 2021-01-25 13:56 | REPVR ---
PROCEDURE INFORMATION: Exam: MR Lumbar Spine Without Contrast Exam date and time: 01/25/2021 11:27 AM Age: 50 years old Clinical indication: Low back pain; Additional info: Paresthesia of skin TECHNIQUE: Imaging protocol: Multiplanar magnetic resonance images of the lumbar spine without intravenous contrast. COMPARISON: MRI-T SPINE W/O FOLL WITH CON 12/31/2020 5:46 PM FINDINGS: Vertebrae: Unremarkable. Spinal cord: Normal signal. No cord compression. L1-L2: No significant disc disease. No significant spinal canal stenosis. No neural foraminal stenosis. L2-L3: There is disc desiccation. There is mild disc bulging. There is facet arthropathy and ligamentum flavum hypertrophy. There is mild spinal canal stenosis. L3-L4: There is mild disc bulging. There is a superimposed left foraminal disc herniation. There is moderate left-sided neuroforaminal narrowing. There is mild right-sided neuroforaminal narrowing. There is facet arthropathy and ligamentum flavum hypertrophy. There is mild spinal canal stenosis. L4-L5: There is disc desiccation. There is a moderate disc bulge with a small superimposed left paracentral/foraminal disc herniation. There is mild/moderate bilateral neuroforaminal narrowing, left worse than right. There is facet arthropathy and ligamentum flavum hypertrophy. There is mild spinal canal stenosis. L5-S1: No significant disc disease. No significant spinal canal stenosis. No neural foraminal stenosis. Soft tissues: Unremarkable. IMPRESSION: Multilevel degenerative changes causing varying degrees of spinal canal and neuroforaminal narrowing as described above. Left foraminal disc herniations at L3/4 and L4/5. Please see details above. Electronically signed by: Diego Cook On 01/25/2021 13:55:25 PM
== END ==
LOC: M RAD 10:01
PROVIDERS: ATTEND Psychiatry & Neurology Neurology
DX: M51.26 Other intervertebral disc displacement, lumbar region (principal); M48.061 Spinal stenosis, lumbar region without neurogenic claudication; R20.2 Paresthesia of skin

== ENCOUNTER 2021-01-27 06:31 | Day surgery (SDC) | payer BC ==
[~2021-01-27] VITALS: Ht 182.9 cm; Wt 97.5 kg
[~2021-01-27 06:31] MED LIST changes: +ACETAMINOPHEN 500 MG TAB PO ONE; +CelecoXIB 400 MG CAP PO ONE; +GABAPENTIN 300 MG CAP PO ONE; +LR 1,000 ML IV ONE; +ONDANSETRON 4MG/2ML VIAL IV ONE
[2021-01-27] MEDS ORDERED: BUPIVACAINE/EPIN 0.5% 30 ML VIAL As Ordered ONE (07:10)
[2021-01-27] MEDS ORDERED: EPINEPHrine 1MG/ML INJ 30ML MD-VIAL As Ordered ONE (07:10)
[2021-01-27] MEDS ORDERED: MIDAZOLAM INJ 2MG/2ML VIAL (J2250 PER 1MG) As Ordered ONE (07:16)
[2021-01-27] MEDS ORDERED: fentaNYL 100 MCG/2 ML INJECTION (J3010) As Ordered ONE ×2 (07:16→09:08)
[2021-01-27] MEDS ORDERED: dexameTHASONE 4 MG/ML 1ML VIAL (J1100 PER 1MG) As Ordered ONE (07:17)
[2021-01-27] MEDS ORDERED: LIDOCAINE 2% 100MG/5ML SDV (FOR ANES.) As Ordered ONE (07:19)
[2021-01-27] MEDS ORDERED: propofoL 200 MG/20 ML VIAL As Ordered ONE (08:01)
[2021-01-27] MEDS ORDERED: ONDANSETRON 4MG/2ML VIAL As Ordered ONE (08:01)
[2021-01-27] MEDS ORDERED: PHENYLephrine 500MCG 5ML (100MCG/ML) SYRINGE As Ordered ONE (08:24)
[2021-01-27] MEDS: fentaNYL 100 MCG/2 ML INJECTION (J3010) IV PRN ×4 (09:10→09:25)
[2021-01-27] MEDS ORDERED: MEPERIDINE INJ 25 MG/ML VIAL (J2175) As Ordered ONE (09:10)
[2021-01-27] MEDS: MEPERIDINE INJ 25 MG/ML VIAL (J2175) IV PRN ×2 (09:15→09:20)
[2021-01-27] MEDS ORDERED: ONDANSETRON 4MG/2ML VIAL IV PRN (09:30)
[2021-01-27] MEDS ORDERED: METOCLOPRAMIDE INJ 10MG/2ML VIAL (J2765 PER 1) IV PRN (09:30)
[2021-01-27] MEDS ORDERED: LR 1,000 ML IV SCH ×2 (09:30)
[2021-01-27] MEDS ORDERED: oxyCODONE 5MG TAB PO PRN (09:35)
[2021-01-27] MEDS ORDERED: HYDROmorphone HCL 2 MG/ML 1ML VIAL (J1170) As Ordered ONE (09:38)
[2021-01-27] MEDS: oxyCODONE 5MG TAB PO PRN ×2 (09:46→10:39)
--- NOTE | 2021-01-27 10:02 | ROOPDOC ---
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 POSTPROCEDURE DIAGNOSES: Right knee diffuse medial femoral condylar osteochondral defect Loose bodies x2 Lateral meniscal tear Lateral femoral condylar osteochondral defect 1 x 1 cm Diffuse scar tissue and inflamed synovium Plica PROCEDURE: Right knee arthroscopy Abrasion arthroplasty/chondroplasty medial femoral condyle Removal of loose bodies x2: 1 x 0.5 cm and 2 x 1 cm Debridement of lateral meniscal tear Microfracture of lateral femoral condylar osteochondral defect 1 x 1 cm Debridement of scar tissue: Inflamed synovium; plica SURGEON: Aaliyah Ennis MD PHLEBOTOMIST: None ANESTHESIA: LMA general ESTIMATED BLOOD LOSS: Less than 10 mL COMPLICATIONS: No known complications. REMARKS: Tourniquet inflated for 49 minutes. PROCEDURE NOTE: The patient was seen in the preoperative area, Consent was reviewed or obtained and the appropriate extremity was marked. DESCRIPTION OF PROCEDURE: The patient was brought to the operating room and aft er a surgical pause, the anesthetic was induced. The patient was appropriately positioned supine on the operating room table. A tourniquet was applied to the appropriate thigh with appropriate padding. Side bolster was also applied to help with manipulation of the extremity during the procedure. The extremity was prepped with chlorhexidine. The patient was draped in the normal sterile fashion. After a surgical safety checklist was performed, and a timeout was performed, the tourniquet was inflated and the incision over the lateral portal site was carried out. The trocar was introduced using the blunt tip. The scope was introduced and the fluid was allowed to run until the joint was insufflated with the scope in the patellofemoral joint. A diagnostic arthroscopy was then carried out. A medial portal was established using needle localization technique. A superior lateral portal was also established using needle localization. Patellofemoral joint: Plica and inflamed synovium debrided with arthroscopic shaver; loose body removed with grasper Patella: Grade 1 Medial gutter: Loose body removed with grasper Lateral gutter: Clear Medial meniscus: Stable Medial femoral condyle: Diffuse grade 3-4 changes: Flaps debrided with shaver and abrasion arthroplasty carried out with bone cutter shaver Medial tibial condyle: Diffuse grade 3-4 changes ACL: Stable Lateral meniscus: Lateral meniscal tear debrided with punches and arthroscopic shaver Lateral femoral condyle: 1 x 1 cm osteochondral defect debrided with a shaver to a stable border and then microfracture utilizing arthroscopic awl Lateral tibial plateau: Grade 2 Once the arthroscopic procedure was completed, the fluid was removed from the joint and the wounds were closed with 3. 0 Monocryl suture. Local anesthetic of 0.5% Marcaine with epi was instilled in the soft tissues and into the joint region. Mastisol was applied to the skin followed by Steri-Strips and Telfa and Tegaderm dressing. This was reinforced with an abdominal pad and a large Jonathon wrap was john catarina up to the level of the thigh from the foot and ankle. The patient was also placed in a knee immobilizer to be nonweightbearing for 2 weeks until reassessed. The patient will then be switched to a hinged knee brace with range of motion from 0 to 45 and then 0 to 90 increasing the range of motion every 2 weeks until full range of motion and weightbearing as tolerated at beyond 6 weeks postop. The patient tolerated the procedure well with no known complications. The patient will be seen for follow-up within 2 weeks, as scheduled. Postoperative instruction booklet was provided. The patient will have prescriptions for oxycodone for pain, baby aspirin for DVT prophylaxis, and senna for constipation. Tylenol and ibuprofen can be used as directed by bottle in structions. Prescriptions were sent to [facility], as requested. 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 Should the patient's symptoms not resolve she may be a candidate for a partial knee replacement versus total knee replacement Thank you for referring this patient to my care, AALIYAH ENNIS MD Jan 27, 2021 10:02
[2021-01-27 11:30] VITALS: BP 142/75
== END 2021-01-27 11:30 | disposition home or self-care (01) ==
LOC: M SDC 06:31
PROVIDERS: ATTEND Orthopaedic Surgery Adult Reconstructive Orthopaedic Surgery
DX: M93.261 Osteochondritis dissecans, right knee (principal); M23.41 Loose body in knee, right knee; M67.51 Plica syndrome, right knee; E03.9 Hypothyroidism, unspecified; E55.9 Vitamin D deficiency, unspecified; Z79.899 Other long term (current) drug therapy; Z88.2 Allergy status to sulfonamides; Z88.8 Allergy status to other drugs, medicaments and biological substances; F41.9 Anxiety disorder, unspecified; F32.9 Major depressive disorder, single episode, unspecified; G43.909 Migraine, unspecified, not intractable, without status migrainosus; Z91.040 Latex allergy status; J45.909 Unspecified asthma, uncomplicated
CPT/HCPCS: 29875; 29879; J1100; J1170; J2175; J2250; J2370; J2405; J3010

== ENCOUNTER → 2021-06-01 | Outpatient (CLI) | payer BC ==
[~2021-06-01] MED LIST changes: -ACETAMINOPHEN 500 MG TAB PO ONE; -CelecoXIB 400 MG CAP PO ONE; -DOXY100C PO; +DOXY100C3 PO; -GABAPENTIN 300 MG CAP PO ONE; -LR 1,000 ML IV ONE; -ONDANSETRON 4MG/2ML VIAL IV ONE
--- NOTE | 2021-06-02 03:51 | REP ---
INDICATION: GOITOR COMPARISON: None. TECHNIQUE: [place] scale and color evaluation of the thyroid gland using the linear high frequency transducer. FINDINGS: The thyroid gland is normal in contour, shape, size, and overall parenchymal echogenicity. Right thyroid lobe measures 4.2 x 1.2 x 1.4 cm and includes 10 x 5 x 9 mm complex cyst with internal solid component. Isthmus measures 3 mm mm in width. Left thyroid lobe measures 4.3 x 0.9 x 0.9 cm and includes 4 x 3 x 4 mm indeterminate hypoechoic nodule. IMPRESSION: Indeterminate bilateral solitary hypoechoic nodules. Consider 12 month follow-up ultrasound and correlation with thyroid function tests as necessary. <Electronically signed by Kaleb Graham > 06/02/21 [id number]
== END ==
LOC: M RAD 11:29
PROVIDERS: ATTEND Family Medicine
DX: E04.9 Nontoxic goiter, unspecified (principal)

== ENCOUNTER → 2021-06-04 | Outpatient (REF) | payer BC ==
[2021-06-04 13:12] LABS: BASO # 0.1 10^3/uL (0.0-0.2); BASO % 0.9 % (0.0-1.0); EOS # 0.6 10^3/uL (0.0-0.5); EOS % 8.3 % (0.0-3.0); HEMATOCRIT 38.4 % (36.0-47.0); HEMOGLOBIN 12.9 g/dl (12.0-15.5); LYMPH % 29.7 % (24.0-44.0); MEAN CORPUSCULAR HEMOGLOBIN 30.4 pg (27.0-33.0); MEAN CORPUSCULAR HGB CONC 33.6 g/dl (32.0-36.5); MEAN CORPUSCULAR VOLUME 90.4 fl (80.0-96.0); MONO # 0.4 10^3/uL (0.0-0.8); MONO % 5.6 % (2.0-8.0); NEUTROPHILS # 3.7 10^3/uL (1.5-8.5); NEUTROPHILS % 55.3 % (36.0-66.0); PLATELET COUNT, AUTOMATED 229 10^3/uL (150-450); RED BLOOD COUNT 4.25 10^6/uL (4.00-5.40); WHITE BLOOD COUNT 6.6 10^3/uL (4.0-10.0)
[2021-06-04 13:49] LABS: ALBUMIN 3.8 GM/DL (3.2-5.2); ALT/SGPT 23 U/L (12-78); BILIRUBIN,TOTAL 0.8 MG/DL (0.2-1.0); BLOOD UREA NITROGEN 15 MG/DL (7-18); CARBON DIOXIDE LEVEL 28 MEQ/L (21-32); CHLORIDE LEVEL 109 MEQ/L (98-107); CHOLESTEROL LEVEL 252 MG/DL (<200); CHOLESTEROL RISK RATIO 4.666 (<5); CREATININE FOR GFR 0.82 MG/DL (0.55-1.30); FREE T4 0.95 NG/DL (0.76-1.46); GLOMERULAR FILTRATION RATE > 60.0 (>58); GLUCOSE, FASTING 92 MG/DL (70-100); HDL CHOLESTEROL 54 MG/DL (>40); LDL CHOLESTEROL 172 MG/DL (<100); NON-HDL-C 198 MG/DL; POTASSIUM SERUM 4.1 MEQ/L (3.5-5.1); SODIUM LEVEL 142 MEQ/L (136-145); TRIGLYCERIDES LEVEL 132 MG/DL (<150)
[2021-06-04 13:50] LABS: TOTAL 25(OH) VITAMIN D 30.2 NG/ML (30.0-100.0)
== END ==
LOC: M LABDRWAD 12:32
PROVIDERS: ATTEND Family Medicine
DX: Z13.220 Encounter for screening for lipoid disorders (principal); Z13.29 Encounter for screening for other suspected endocrine disorder; E03.8 Other specified hypothyroidism; Z13.0 Encounter for screening for diseases of the blood and blood-forming organs and certain disorders involving the immune mechanism

== ENCOUNTER → 2021-07-06 | Outpatient (REF) | payer BC ==
[2021-07-06 16:53] LABS: LUTEINIZING HORMONE 8.1 mIU/mL
== END ==
LOC: M LABDRWAD 15:55
PROVIDERS: ATTEND Obstetrics & Gynecology
DX: N91.4 Secondary oligomenorrhea (principal)

== ENCOUNTER → 2021-08-14 | Outpatient (CLI) | payer BC | LOC: M RAD 12:12 | PROVIDERS: ATTEND Family Medicine | DX: S39.012A Strain of muscle, fascia and tendon of lower back, initial encounter (principal); X58.XXXA Exposure to other specified factors, initial encounter; Y92.9 Unspecified place or not applicable; Y93.9 Activity, unspecified; Y99.9 Unspecified external cause status ==

== ENCOUNTER → 2021-08-26 | Outpatient (CLI) | payer BC ==
[~2021-08-26] MED LIST changes: -D31000TA2 PO; +VITA100093 PO
[2021-08-26 12:57] LABS: THYROGLOBULIN ANTIBODY < 15.0 U/ML (<60.0); THYROID PEROXIDASE ANTIBODY 50.4 U/ML (<60.0)
== END ==
LOC: M LAB 10:33
PROVIDERS: ATTEND Internal Medicine Endocrinology, Diabetes & Metabolism
DX: E04.2 Nontoxic multinodular goiter (principal)

== ENCOUNTER → 2022-04-06 | Outpatient (REF) | payer BC | LOC: M LAB REF 14:30 | PROVIDERS: ATTEND Family Medicine | DX: J20.9 Acute bronchitis, unspecified (principal) ==

== ENCOUNTER → 2022-04-07 | Outpatient (REF) | payer BC | LOC: M LAB REF 16:02 | PROVIDERS: ATTEND Otolaryngology | DX: R49.0 Dysphonia (principal) ==

== ENCOUNTER → 2022-04-07 | Outpatient (CLI) | payer BC ==
[2022-04-07 17:30] LABS: FREE T4 0.79 NG/DL (0.76-1.46); THYROID STIMULATING HORMONE 4.88 uIU/ML (0.358-3.740)
== END ==
LOC: M LAB 16:15
PROVIDERS: ATTEND Nurse Practitioner Family
DX: E03.9 Hypothyroidism, unspecified (principal)

== ENCOUNTER → 2022-06-15 | Outpatient (REF) | payer BC ==
[2022-06-15 08:46] LABS: BASO # 0.1 10^3/uL (0.0-0.2); BASO % 0.8 % (0.0-1.0); EOS # 0.3 10^3/uL (0.0-0.5); HEMATOCRIT 38.7 % (36.0-47.0); HEMOGLOBIN 12.7 g/dl (12.0-15.5); LYMPH % 32.9 % (24.0-44.0); MEAN CORPUSCULAR HEMOGLOBIN 30.3 pg (27.0-33.0); MEAN CORPUSCULAR HGB CONC 32.8 g/dl (32.0-36.5); MEAN CORPUSCULAR VOLUME 92.4 fl (80.0-96.0); MONO # 0.4 10^3/uL (0.0-0.8); MONO % 5.8 % (2.0-8.0); NEUTROPHILS # 3.4 10^3/uL (1.5-8.5); NEUTROPHILS % 55.2 % (36.0-66.0); PLATELET COUNT, AUTOMATED 204 10^3/uL (150-450); RED BLOOD COUNT 4.19 10^6/uL (4.00-5.40); WHITE BLOOD COUNT 6.2 10^3/uL (4.0-10.0)
[2022-06-15 09:08] LABS: ALBUMIN 3.7 G/DL (3.2-5.2); ALKALINE PHOSPHATASE 58 U/L (46-116); ALT/SGPT 11 U/L (7.0-40); AST/SGOT 17 U/L (<34); BILIRUBIN,TOTAL 0.6 MG/DL (0.3-1.2); BLOOD UREA NITROGEN 17 MG/DL (9-23); CALCIUM LEVEL 8.9 MG/DL (8.5-10.1); CARBON DIOXIDE LEVEL 28 MMOL/L (20-31); CHLORIDE LEVEL 104 MMOL/L (98-107); CHOLESTEROL LEVEL 212 MG/DL (<200); CHOLESTEROL RISK RATIO 3.51 (<5); CREATININE FOR GFR 0.84 MG/DL (0.55-1.30); GLOMERULAR FILTRATION RATE > 60.0 (>58); GLUCOSE, FASTING 86 MG/DL (60-100); HDL CHOLESTEROL 60.3 MG/DL (>40); LDL CHOLESTEROL 132.5 MG/DL (<100); NON-HDL-C 152 MG/DL; POTASSIUM SERUM 3.9 MMOL/L (3.5-5.1); SODIUM LEVEL 140 MMOL/L (136-145); TOTAL PROTEIN 6.5 G/DL (5.7-8.2); TRIGLYCERIDES LEVEL 96 MG/DL (<150)
[2022-06-15 09:09] LABS: FREE T4 0.85 NG/DL (0.89-1.76); THYROID STIMULATING HORMONE 4.362 uIU/ML (0.55-4.78)
== END ==
LOC: M LAB REF 08:18
PROVIDERS: ATTEND Family Medicine
DX: E55.9 Vitamin D deficiency, unspecified (principal); Z13.29 Encounter for screening for other suspected endocrine disorder; Z13.220 Encounter for screening for lipoid disorders; Z13.0 Encounter for screening for diseases of the blood and blood-forming organs and certain disorders involving the immune mechanism

== ENCOUNTER → 2022-06-24 | Outpatient (CLI) | payer BC ==
[~2022-06-24] MED LIST changes: +BARIUM SULFATE 700 MG TABLET (E-Z-DISK) As Ordered ONE; +E-Z-PAQUE 96% w/w SUSP 176GM BTL As Ordered ONE; +VARIBAR NECTAR 40% w/v 240ML SUSP BTL As Ordered ONE; +VARIBAR PUDDING 40% w/v 230ML TUBE As Ordered ONE
== END ==
LOC: M RAD 12:50
PROVIDERS: ATTEND Physician Assistant Medical
DX: R13.10 Dysphagia, unspecified (principal)

== ENCOUNTER → 2022-07-01 | Outpatient (CLI) | payer BC ==
[~2022-07-01] MED LIST changes: -BARIUM SULFATE 700 MG TABLET (E-Z-DISK) As Ordered ONE; -E-Z-PAQUE 96% w/w SUSP 176GM BTL As Ordered ONE; +PROHANCE 279.3MG/ML 15ML VIAL ONE; +PROHANCE 279.3MG/ML 5ML VIAL ONE; -VARIBAR NECTAR 40% w/v 240ML SUSP BTL As Ordered ONE; -VARIBAR PUDDING 40% w/v 230ML TUBE As Ordered ONE
== END ==
LOC: M PLAIMG 09:23
PROVIDERS: ATTEND Family Medicine
DX: R92.8 Other abnormal and inconclusive findings on diagnostic imaging of breast (principal); Z97.8 Presence of other specified devices
CPT/HCPCS: A9576; C8908

== ENCOUNTER → 2022-07-26 | Outpatient (REF) ==
[~2022-07-26] MED LIST changes: -PROHANCE 279.3MG/ML 15ML VIAL ONE; -PROHANCE 279.3MG/ML 5ML VIAL ONE
[2022-07-26 10:49] LABS: RSV AMPLIFICATION NEGATIVE (NEGATIVE)
== END ==
LOC: M EMP 09:33
PROVIDERS: ATTEND Family Medicine
DX: Z20.822 Contact with and (suspected) exposure to COVID-19 (principal)

== ENCOUNTER → 2022-07-29 | Outpatient (REF) | LOC: M LABSMTC 10:54 | PROVIDERS: ATTEND Family Medicine | DX: Z11.52 Encounter for screening for COVID-19 (principal) ==

== ENCOUNTER → 2022-08-12 | Outpatient (CLI) | payer BC ==
[~2022-08-12] MED LIST changes: +E-Z-GAS II EFFERVESCENT PACKET (SODIUM BICARB./CITRIC ACID/SIMETHICONE) As Ordered ONE; +E-Z-HD 98% w/w 340GM SUSP BTL As Ordered ONE; +E-Z-PAQUE 96% w/w SUSP 176GM BTL As Ordered ONE
== END ==
LOC: M RAD 10:26
PROVIDERS: ATTEND Physician Assistant Medical
DX: R13.10 Dysphagia, unspecified (principal)

== ENCOUNTER → 2022-09-20 | Outpatient (CLI) | payer BC ==
[~2022-09-20] MED LIST changes: +AMIT10TA7 PO; -E-Z-GAS II EFFERVESCENT PACKET (SODIUM BICARB./CITRIC ACID/SIMETHICONE) As Ordered ONE; -E-Z-HD 98% w/w 340GM SUSP BTL As Ordered ONE; -E-Z-PAQUE 96% w/w SUSP 176GM BTL As Ordered ONE; +PANT40TA29 PO
== END ==
LOC: M LABSMTC 08:26
PROVIDERS: ATTEND Anesthesiology
DX: Z20.822 Contact with and (suspected) exposure to COVID-19 (principal)

== ENCOUNTER 2022-09-23 11:37 | Day surgery (SDC) | payer BC ==
[~2022-09-23] VITALS: Ht 182.9 cm; Wt 98.8 kg
[~2022-09-23 11:37] MED LIST changes: +NS 1,000 ML IV ONE
[2022-09-23] MEDS ORDERED: LIDOCAINE 2% MDV 20ML VIAL As Ordered ONE ×2 (14:26→14:36)
[2022-09-23] MEDS ORDERED: GLYCOPYRROLATE INJ 0.2 MG/ML 2 ML VIAL As Ordered ONE ×2 (14:26→14:36)
[2022-09-23] MEDS ORDERED: propofoL 200 MG/20 ML VIAL As Ordered ONE (14:26)
[2022-09-23] MEDS ORDERED: fentaNYL 100 MCG/2 ML INJECTION As Ordered ONE ×2 (14:26→14:36)
[2022-09-23 15:00] VITALS: BP 136/83
== END 2022-09-23 15:04 | disposition home or self-care (01) ==
LOC: M OPP 11:37
PROVIDERS: ATTEND Internal Medicine Gastroenterology
DX: R13.12 Dysphagia, oropharyngeal phase (principal); R13.11 Dysphagia, oral phase; Z80.0 Family history of malignant neoplasm of digestive organs; E55.9 Vitamin D deficiency, unspecified; I34.9 Nonrheumatic mitral valve disorder, unspecified; Z79.1 Long term (current) use of non-steroidal anti-inflammatories (NSAID); Z79.891 Long term (current) use of opiate analgesic; Z79.899 Other long term (current) drug therapy; Z88.2 Allergy status to sulfonamides; Z91.040 Latex allergy status; Z87.448 Personal history of other diseases of urinary system
CPT/HCPCS: 43239; 43450; 88305; J3010

== ENCOUNTER → 2022-10-06 | Outpatient (REF) ==
[~2022-10-06] MED LIST changes: -NS 1,000 ML IV ONE
[2022-10-06 15:13] LABS: APPEARANCE, URINE CLEAR (CLEAR); BACTERIA, URINE AUTO NEGATIVE (NEGATIVE); BILIRUBIN, URINE AUTO NEGATIVE (NEGATIVE); BLOOD, URINE BLOOD NEGATIVE (NEGATIVE); COLOR, URINE YELLOW (YELLOW); GLUCOSE, URINE (UA) AUTO NEGATIVE (NEGATIVE); KETONE, URINE AUTO NEGATIVE (NEGATIVE); LEUKOCYTE ESTERASE, URINE AUTO NEGATIVE (NEGATIVE); MUCUS, URINE SMALL (NEGATIVE); NITRITE, URINE AUTO NEGATIVE (NEGATIVE); PROTEIN, URINE AUTO NEGATIVE (NEGATIVE); RBC, URINE AUTO 1 /HPF (0-3); SPECIFIC GRAVITY URINE AUTO 1.019 (1.002-1.035); SQUAMOUS EPITHELIAL CELL UR AU 0 /HPF (0-6); UROBILINOGEN, URINE AUTO 0.2 mg/dL (0.0-2.0); WBC, URINE AUTO 0 /HPF (0-3)
[2022-10-06 15:15] LABS: BASO # 0.1 10^3/uL (0.0-0.2); BASO % 0.6 % (0.0-1.0); EOS # 0.3 10^3/uL (0.0-0.5); HEMATOCRIT 38.9 % (36.0-47.0); HEMOGLOBIN 12.7 g/dl (12.0-15.5); LYMPH # 2.5 10^3/uL (1.5-5.0); LYMPH % 32.6 % (24.0-44.0); MEAN CORPUSCULAR HGB CONC 32.6 g/dl (32.0-36.5); MONO # 0.4 10^3/uL (0.0-0.8); MONO % 5.3 % (2.0-8.0); NEUTROPHILS # 4.5 10^3/uL (1.5-8.5); NEUTROPHILS % 57.2 % (36.0-66.0); PLATELET COUNT, AUTOMATED 214 10^3/uL (150-450); RED BLOOD COUNT 4.23 10^6/uL (4.00-5.40); WHITE BLOOD COUNT 7.8 10^3/uL (4.0-10.0)
[2022-10-06 15:44] LABS: ALBUMIN 4.1 G/DL (3.2-5.2); ALKALINE PHOSPHATASE 63 U/L (46-116); ALT/SGPT 17 U/L (7.0-40); AST/SGOT 17 U/L (<34); BILIRUBIN,TOTAL 0.7 MG/DL (0.3-1.2); BLOOD UREA NITROGEN 16 MG/DL (9-23); CARBON DIOXIDE LEVEL 30 MMOL/L (20-31); CHLORIDE LEVEL 105 MMOL/L (98-107); CREATININE FOR GFR 0.74 MG/DL (0.55-1.30); GLOMERULAR FILTRATION RATE > 60.0 (>58); GLUCOSE, FASTING 102 MG/DL (60-100); POTASSIUM SERUM 3.9 MMOL/L (3.5-5.1); SODIUM LEVEL 138 MMOL/L (136-145); TOTAL PROTEIN 6.9 G/DL (5.7-8.2)
== END ==
LOC: M LAB REF 15:00
PROVIDERS: ATTEND Nurse Practitioner Adult Health
DX: Z02.1 Encounter for pre-employment examination (principal)

== ENCOUNTER → 2022-10-21 | Outpatient (CLI) | payer BC | LOC: M SOG 08:02 | PROVIDERS: ATTEND Orthopaedic Surgery | DX: Z53.9 Procedure and treatment not carried out, unspecified reason (principal) ==

== ENCOUNTER → 2023-03-03 | Outpatient (REF) | payer BC ==
[~2023-03-03] MED LIST changes: -AMIT25TA17; +AMIT25TA19
[2023-03-03 09:18] LABS: BASO # 0.1 10^3/uL (0.0-0.2); BASO % 0.9 % (0.0-1.0); EOS # 0.4 10^3/uL (0.0-0.5); EOS % 5.3 % (0.0-3.0); HEMATOCRIT 38.9 % (36.0-47.0); HEMOGLOBIN 12.8 g/dl (12.0-15.5); LYMPH # 2.3 10^3/uL (1.5-5.0); LYMPH % 33.3 % (24.0-44.0); MEAN CORPUSCULAR HGB CONC 32.9 g/dl (32.0-36.5); MEAN CORPUSCULAR VOLUME 91.3 fl (80.0-96.0); MONO # 0.5 10^3/uL (0.0-0.8); MONO % 6.7 % (2.0-8.0); NEUTROPHILS # 3.7 10^3/uL (1.5-8.5); NEUTROPHILS % 53.7 % (36.0-66.0); PLATELET COUNT, AUTOMATED 216 10^3/uL (150-450); RED BLOOD COUNT 4.26 10^6/uL (4.00-5.40); WHITE BLOOD COUNT 6.9 10^3/uL (4.0-10.0)
[2023-03-03 09:56] LABS: ALKALINE PHOSPHATASE 54 U/L (46-116); ALT/SGPT 13 U/L (7.0-40); AST/SGOT < 8 U/L (<34); BILIRUBIN,TOTAL 0.8 MG/DL (0.3-1.2); BLOOD UREA NITROGEN 18 MG/DL (9-23); CARBON DIOXIDE LEVEL 26 MMOL/L (20-31); CHLORIDE LEVEL 109 MMOL/L (98-107); CHOLESTEROL LEVEL 212 MG/DL (<200); CHOLESTEROL RISK RATIO 3.47 (<5); CREATININE FOR GFR 0.92 MG/DL (0.55-1.30); FREE T4 0.76 NG/DL (0.89-1.76); GLOMERULAR FILTRATION RATE > 60.0 (>51); GLUCOSE, FASTING 92 MG/DL (60-100); LDL CHOLESTEROL 135.2 MG/DL (<100); POTASSIUM SERUM 4.3 MMOL/L (3.5-5.1); SODIUM LEVEL 140 MMOL/L (136-145); THYROID STIMULATING HORMONE 4.152 uIU/ML (0.55-4.78); TOTAL 25(OH) VITAMIN D 28.1 NG/ML (20.0-100.0); TOTAL PROTEIN 6.9 G/DL (5.7-8.2); TRIGLYCERIDES LEVEL 79 MG/DL (<150)
== END ==
LOC: M LAB REF 08:41
PROVIDERS: ATTEND Nurse Practitioner Adult Health
DX: E55.9 Vitamin D deficiency, unspecified (principal); F33.1 Major depressive disorder, recurrent, moderate; E04.9 Nontoxic goiter, unspecified; Z13.220 Encounter for screening for lipoid disorders

== ENCOUNTER → 2023-04-01 | Outpatient (CLI) | payer BC ==
[~2023-04-01] MED LIST changes: +PROHANCE 279.3MG/ML 15ML VIAL ONE; +PROHANCE 279.3MG/ML 5ML VIAL ONE
== END ==
LOC: M PLAIMG 09:22
DX: G44.52 New daily persistent headache (NDPH) (principal)
CPT/HCPCS: 70553; A9576

== ENCOUNTER → 2023-04-25 | Outpatient (REF) | payer BC ==
[~2023-04-25] MED LIST changes: -PROHANCE 279.3MG/ML 15ML VIAL ONE; -PROHANCE 279.3MG/ML 5ML VIAL ONE
== END ==
LOC: M SFHCDERM 17:45
PROVIDERS: ATTEND Physician Assistant
DX: L82.1 Other seborrheic keratosis (principal)

== ENCOUNTER → 2023-05-02 | Outpatient (REF) | LOC: M EMP 07:53 | PROVIDERS: ATTEND Family Medicine | DX: Z11.52 Encounter for screening for COVID-19 (principal) ==

== ENCOUNTER → 2023-06-09 | Outpatient (REF) | LOC: M EMP 09:51 | PROVIDERS: ATTEND Family Medicine | DX: Z11.52 Encounter for screening for COVID-19 (principal) ==

== ENCOUNTER → 2023-08-09 | Outpatient (REF) | payer BC | LOC: M LAB REF 12:04 | PROVIDERS: ATTEND Physician Assistant | DX: B34.9 Viral infection, unspecified (principal) ==

== ENCOUNTER → 2023-08-09 | Outpatient (REF) | LOC: M EMP 08:29 | PROVIDERS: ATTEND Family Medicine | DX: Z11.59 Encounter for screening for other viral diseases (principal) ==

== ENCOUNTER → 2023-09-06 | Outpatient (REF) | payer BC | LOC: M LAB REF 10:05 | PROVIDERS: ATTEND Family Medicine | DX: N95.1 Menopausal and female climacteric states (principal) ==

== ENCOUNTER → 2023-09-20 | Outpatient (REF) ==
[2023-09-20 15:12] LABS: BASO # 0.1 10^3/uL (0.0-0.2); BASO % 0.7 % (0.0-1.0); EOS # 0.2 10^3/uL (0.0-0.5); EOS % 2.3 % (0.0-3.0); HEMATOCRIT 37.5 % (36.0-47.0); HEMOGLOBIN 12.6 g/dl (12.0-15.5); LYMPH # 2.2 10^3/uL (1.5-5.0); MEAN CORPUSCULAR HEMOGLOBIN 30.7 pg (27.0-33.0); MEAN CORPUSCULAR HGB CONC 33.6 g/dl (32.0-36.5); MEAN CORPUSCULAR VOLUME 91.2 fl (80.0-96.0); MONO # 0.3 10^3/uL (0.0-0.8); MONO % 4.3 % (2.0-8.0); NEUTROPHILS # 4.8 10^3/uL (1.5-8.5); NEUTROPHILS % 63.6 % (36.0-66.0); PLATELET COUNT, AUTOMATED 207 10^3/uL (150-450); RED BLOOD COUNT 4.11 10^6/uL (4.00-5.40); WHITE BLOOD COUNT 7.5 10^3/uL (4.0-10.0)
[2023-09-20 15:13] LABS: APPEARANCE, URINE CLEAR (CLEAR); BACTERIA, URINE AUTO NEGATIVE (NEGATIVE); BILIRUBIN, URINE AUTO NEGATIVE (NEGATIVE); BLOOD, URINE BLOOD NEGATIVE (NEGATIVE); COLOR, URINE STRAW (YELLOW); GLUCOSE, URINE (UA) AUTO NEGATIVE (NEGATIVE); KETONE, URINE AUTO NEGATIVE (NEGATIVE); LEUKOCYTE ESTERASE, URINE AUTO NEGATIVE (NEGATIVE); NITRITE, URINE AUTO NEGATIVE (NEGATIVE); PROTEIN, URINE AUTO NEGATIVE (NEGATIVE); RBC, URINE AUTO 0 /HPF (0-3); SQUAMOUS EPITHELIAL CELL UR AU 1 /HPF (0-6); UROBILINOGEN, URINE AUTO 0.2 mg/dL (0.0-2.0); WBC, URINE AUTO 0 /HPF (0-3)
[2023-09-20 15:48] LABS: ALBUMIN 4.1 G/DL (3.2-5.2); ALKALINE PHOSPHATASE 58 U/L (46-116); ALT/SGPT 14 U/L (7.0-40); AST/SGOT 17 U/L (<34); BILIRUBIN,TOTAL 0.5 MG/DL (0.3-1.2); BLOOD UREA NITROGEN 15 MG/DL (9-23); CARBON DIOXIDE LEVEL 29 MMOL/L (20-31); CHLORIDE LEVEL 106 MMOL/L (98-107); CREATININE FOR GFR 0.69 MG/DL (0.55-1.30); GLOMERULAR FILTRATION RATE > 60.0 (>51); GLUCOSE, FASTING 92 MG/DL (60-100); POTASSIUM SERUM 3.7 MMOL/L (3.5-5.1); SODIUM LEVEL 138 MMOL/L (136-145); TOTAL PROTEIN 6.7 G/DL (5.7-8.2)
[2023-09-20 15:50] LABS: THYROID STIMULATING HORMONE 4.627 uIU/ML (0.55-4.78)
== END ==
LOC: M EMP 14:47
PROVIDERS: ATTEND Nurse Practitioner Adult Health
DX: Z01.89 Encounter for other specified special examinations (principal)

== ENCOUNTER → 2025-03-26 | Outpatient (CLI) | payer BC ==
[~2025-03-26] MED LIST changes: +AMIT10TA11 PO; -AMIT10TA7 PO; +GABA-1172 PO; -GABA-282 PO; -IBUP-1022 PO; -IBUP1TAB6 PO; +IBUP600T42 PO; +SFHIBU600 PO
== END ==
LOC: M SOG 07:16
PROVIDERS: ATTEND Orthopaedic Surgery
DX: M25.561 Pain in right knee (principal)